=== PATIENT | female | born 1960 | race Caucasian/White ===

== ENCOUNTER 2019-08-27 08:42 | Outpatient (CLI) | payer OTHER, SELFPAY ==
--- NOTE | ~2019-08-27 | MM_ITS ---
EXAMINATION: MM screening kota BI w nicholas HISTORY: Screening mammogram TECHNIQUE: Craniocaudal and mediolateral oblique 3-D tomosynthesis images were obtained and synthetic 2-D images were generated. CAD analysis was submitted and interpreted. COMPARISON: 08/17/2018, 05/16/2017, 11/09/2015 bilateral digital screening mammogram examinations BREAST PARENCHYMAL COMPOSITION: The breasts are almost entirely fatty. FINDINGS: There is no evidence of suspicious mass, calcification, or architectural distortion to sugg est malignancy in either breast. There has been no suspicious interval change. IMPRESSION: 1. No mammographic evidence of malignancy. 2. Recommend routine screening mammography in one year. BI-RADS Category 1: Negative Reviewed, dictated and finalized at location A.
== END 2019-08-27 08:43 | disposition home or self-care (01) ==
PROVIDERS: PCP Internal Medicine; Visit Provider Obstetrics & Gynecology
DX: Z12.31 Encounter for screening mammogram for malignant neoplasm of breast (principal)
CPT/HCPCS: 77063; 77067

== ENCOUNTER 2019-11-16 07:48 | Outpatient (RCR) | payer OTHER, SELFPAY ==
--- NOTE | 2019-11-16 09:35 | OTOPEVAL ---
OCCUPATIONAL THERAPY EVALUATION REPORT Thank you for referring Sloane Adamson to [facility].? 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 She will benefit from orthotic fabrication, use of modalities, manual therapy, HEP instruction, and kinesiotaping to help facilitate pain reduction and optimal functional use of the right UE. Therapy recommended 1-2x/week for 6 weeks with the goal of tapering off therapy in weeks 4-6 while inflammation and pain decrease. Please review, sign, date and return this plan of care AKIL. I agree with and certify that the following plan of care is medically necessary. Referring Physician Date Referring Provider: Triston Osuna MD *OT Outpatient Evaluation Outpatient Past Medical History Past Medical History Source of Past Medical History Patient Neurological History Hx Neurological Disorders No Significant History Cardiovascular History Hx Cardiac Disorders No Significant History Respiratory History Hx Respiratory Disorders No Significant History Gastrointestinal History Hx Gastroesophageal Reflux Disease Yes Hx Polyps Yes Genitourinary History Hx Genitourinary Disorders No Significant History Musculoskeletal History Hx Arthritis Yes: back Hx Fractures Yes: right clavicle Integumentary History Hx Skin Disorders No Significant History Other History Hx Other Surgeries Yes: Right carpal and cubital tunnel surgeries Evaluation Information Problem Diagnosis Right forearm pain Subjective Information Sloane reports having right Query Text:As Reported By Patient/ dorsal wrist and thumb pain Family since about September. In the past 6-8 weeks has had cortisone injections for right trigger thumb, de Quervain's, and intersection syndrome. She reports very minimal relief from the injections and that her pain always returns. She has a wrist cock up brace that she wears intermittently . Pain Assessment Timing of Pain Assessment Timing of Pain Assessment Assessment Pain Scale Pain Scale Used Numeric (1 - 10) Self Report Pain Assessment Right Dorsal Wrist(s) Reported Pain Level 5 Pain Description Aching,Soreness Pain Frequency Continuous Lowest Pain Intensity 2 Greatest Pain Intensity 10 Interventions Used By Clinicians Education,Manual Therapy Techniques,Paraffin,Taping Additional Pain Comments Post tx - pain reduced to 3/10 Pain Score Pain Score 5: Self Report Upper Extremity Range of Motion Elbow/Forearm Range of Motion Bilateral Reason Not Measured
--- NOTE | 2019-12-03 07:32 | PCOTNOTE ---
Patient called and cancelled tx this AM due to hurting her hand.
--- NOTE | 2019-12-14 07:35 | PCOTNOTE ---
Patient called & cancelled scheduled appointment this date due to not feeling well.
--- NOTE | 2019-12-16 11:32 | OTOPEVAL ---
OCCUPATIONAL THERAPY RE-EVALUATION 12/16/19 Thank you for referring Sloane Adamson to [facility] [place].? At this time Sloane has progressed to having no pain and has been immobilizing the wrist and thumb x3 weeks. Sloane's HEP was progressed from PROM to beginning AROM. Over the next three weeks she has home exercise program which will progress to graded strengthening with a schedule to wean off the orthotic at the 6 week hollie. Plan to have the patient complete this HEP over the next 3 weeks on her own and follow-up for a final re-evaluation in 3 weeks. The patient is scheduled to be seen for another therapy follow up and re-eval in 3 weeks. Please review, sign, date and return this plan of care AKIL. I agree with and certify that the following plan of care is medically necessary. Referring Physician Date Admitting Provider: Attending Provider: Triston Osuna MD Referring Provider: *OT Outpatient Evaluation Start: 11/16/19 07:59 Evaluation Information Problem Diagnosis Right forearm pain Additional Evaluation Detail Sloane has participated in the initial therapy evaluation and 6 subsequent treatment sessions for right forearm pain consistent with intersection syndrome. Therapy has consisted of using forearm based thumb spica splint in conjunction with modalities and manual therapy for inflammation reduction. Subjective Information Sloane reports improving to Query Text:As Reported By Patient/ having no pain. She states she Family has been compliant with wearing the splint at all times . She notes being happy with the progress so far. Pain Assessment Timing of Pain Assessment Timing of Pain Assessment Re-assessment Pain Scale Pain Scale Used Numeric (1 - 10) Self Report Pain Assessment Right Dorsal Wrist(s) Reported Pain Level 0 Lowest Pain Intensity 0 Greatest Pain Intensity 0 Pain Level Goal 0 Pain Relief Interventions Used By Splinting Patient Pain Score Pain Score 0: Self Report Additional Pain Score Comments At SOC, patient's pain at rest with consistently 5/10 and would increase to 10/10 at times. She has been wearing a forearm based thumb spica x3 weeks and has had 0/10 pain for a week. Upper Extremity Range of Motion Wrist Range of Motion Bilateral Reason Not Measured WNL/Left,WNL/Right Wrist Range of Motion Comments No pain with AROM of the
--- NOTE | 2020-01-05 08:55 | OTOPEVAL ---
OT RE-EVALUATION AND DISCHARGE NOTE 01/05/2020 Thank you for referring Sloane Adamson to [facility]. Sloane has progressed to no pain with unrestricted use and no pain with strengthening. She is independent with all materials including a splint weaning schedule to stop wearing the splint at night. Goals have been met and patient is in agreement with discharge. Please review, sign, date and return this D/C Note AKIL. I agree with and certify that the following plan of care is medically necessary. 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 Therapy has consisted of using forearm based thumb spica splint in conjunction with modalities and manual therapy for inflammation reduction. Today she presents to the re- evaluation after 3 weeks of no therapy, wrist strengthening with 1-2#, and weaning from the splint. Subjective Information Sloane continues to report no Query Text:As Reported By Patient/ pain at this time. She has not Family been wearing the splint during the day with activity and states that no activities have caused pain. She is able to complete 20 reps of wrist strengthening with 2# free weight without pain. She states she has been wearing the splint to bed about 50% of the time. Pain Assessment Timing of Pain Assessment Timing of Pain Assessment Re-assessment Self Report Self Report Pain Level 0 Pain Score Pain Score 0: Self Report Upper Extremity Range of Motion Elbow/Forearm Range of Motion Bilateral Reason Not Measured WNL/Left,WNL/Right Wrist Range of Motion Bilateral Reason Not Measured WNL/Left,WNL/Right Wrist Range of Motion Comments No pain with AROM of the wrist Finger Range of Motion Bilateral Reason Not Measured WNL/Left,WNL/Right Thumb Range of Motion Bilateral Reason Not Measured WNL/Right Upper Extremity Muscle Strength Testing Wrist
== END 2020-01-05 11:23 | disposition home or self-care (01) ==
LOC: ANHOT 07:48
PROVIDERS: PCP Internal Medicine; Visit Provider Plastic Surgery
DX: M79.631 Pain in right forearm (principal)
CPT/HCPCS: 97018; 97035; 97110; 97140; 97166; L3808

== ENCOUNTER → 2020-08-11 14:35 | Outpatient (CLI) | payer OTHER, SELFPAY ==
--- NOTE | ~2020-08-11 | MR_ITS ---
EXAMINATION: MR lumbar spine wo con DATE: 08/11/2020 15:28 INDICATION: Chronic worsening lumbago TECHNIQUE: Magnetic resonance imaging (MRI) of the lumbar spine was performed without intravenous con trast. Sequences included sagittal T2-weighted FSE, sagittal T2-weighted FS FSE, sagittal T1-weighted FSE, and axial T2-weighted FSE. COMPARISON: 03/29/2019 FINDINGS: 7 degrees lumbar levocurvature. Sagittal alignment is normal. Vertebral body heights are normal. T1 h yperintense L1 hemangioma. Normal marrow signal. Disc heights are normal. The conus medullaris termin ates at T12-L1. There is normal signal in the caudal spinal cord. Paravertebral soft tissues are unre markable. The following disc levels are specifically discussed: T12-L1: Disc is minimally bulging. There is mild bilateral facet joint osteoarthritis. There is no ne ural foraminal stenosis. There is no central canal stenosis. L1-L2: Disc is minimally bulging. There is mild bilateral facet joint osteoarthritis. There is no jessi ral foraminal stenosis. There is no central canal stenosis. L2-L3: Disc is mildly bulging. There is mild bilateral facet joint osteoarthritis. There is mild righ t and minimal left neural foraminal stenosis. There is no central canal stenosis. L3-L4: Disc is mildly bulging. There is mild bilateral facet joint osteoarthritis. There is mild bila teral neural foraminal stenosis. There is no central canal stenosis. L4-L5: Disc is bulging with annular fissure superimposed small central disc extrusion with disc mater ial extending couple millimeters cephalad to the level of the inferior endplate of L4. There is hyper trophy of the ligamentum flavum. There is moderate bilateral facet joint osteoarthritis. There is mil d right and mild to moderate left neural foraminal stenosis. There is mild central canal stenosis. L5-S1: Unchanged central disc protrusion. There is mild right and moderate left facet joint osteoarth ritis. There is mild bilateral neural foraminal stenosis. There is mild central canal stenosis. IMPRESSION: 1. No appreciable interval change in mild lumbar spondylosis. Reviewed, dictated and finalized at location A.
== END ==
PROVIDERS: Visit Provider Nurse Practitioner Family
DX: M54.5 Low back pain (principal)
CPT/HCPCS: 72148

== ENCOUNTER 2020-09-06 08:49 | Outpatient (CLI) | payer OTHER, SELFPAY ==
--- NOTE | ~2020-09-06 | MM_ITS ---
EXAMINATION: MM screening kota BI w nicholas HISTORY: Screening mammogram TECHNIQUE: Craniocaudal and mediolateral oblique 3-D tomosynthesis images were obtained and synthetic 2-D images were generated. CAD analysis was submitted and interpreted. COMPARISON: 08/27/2019, 08/22/2018, 05/16/2017 bilateral digital screening mammogram examinations BREAST PARENCHYMAL COMPOSITION: The breasts are almost entirely fatty. FINDINGS: There is no evidence of suspicious mass, calcification, or architectural distortion to sugg est malignancy in either breast. There has been no suspicious interval change. IMPRESSION: 1. No mammographic evidence of malignancy. 2. Recommend routine screening mammography in one year. BI-RADS Category 1: Negative Reviewed, dictated and finalized at location A.
== END 2020-09-06 08:50 | disposition home or self-care (01) ==
PROVIDERS: PCP Internal Medicine; Visit Provider Obstetrics & Gynecology
DX: Z12.31 Encounter for screening mammogram for malignant neoplasm of breast (principal)
CPT/HCPCS: 77063; 77067

== ENCOUNTER 2020-10-04 09:00 | Outpatient (RCR) | payer OTHER, SELFPAY ==
--- NOTE | 2020-09-04 12:35 | PTOPEVAL ---
INITIAL PHYSICAL THERAPY EVALUATION and PLAN OF CARE Thank you for referring Sloane Adamson to [facility].? Sloane is scheduled to be seen for physical therapy? 2x/week for 4 weeks. Please review, sign, date and return this plan of care AKIL. I agree with and certify that the following plan of care is medically necessary. Referring Physician Date Admitting Provider: Attending Provider: Keira Shah, WINDER HELPER-C Referring Provider: *PT Outpatient Evaluation Start: 09/04/20 11:23 Freq: Status: Active Protocol: Document 09/04/20 11:24 NAJMA (Rec: 09/04/20 12:33 NAJMA [id number]) Therapy Assessment Status Assessment Status Assessment Status Evaluation Outpatient Past Medical History Past Medical History Source of Past Medical History Recalled from Previous Visit, Confirmed with Patient/Family Neurological History Hx Neurological Disorders No Significant History Cardiovascular History Hx Hypertension Yes Respiratory History Hx Respiratory Disorders No Significant History Gastrointestinal History Hx Cholecystectomy Yes Hx Gastroesophageal Reflux Disease Yes Hx Polyps Yes Genitourinary History Hx Genitourinary Disorders No Significant History Musculoskeletal History Hx Arthritis Yes: back Hx Fractures Yes: right clavical Hx Orthopedic Surgery Yes: L bunion Integumentary History Hx Skin Disorders No Significant History Other History Hx Other Surgeries Yes: Right carpal and cubital tunnel surgeries Evaluation Information Problem Diagnosis LBP, spondylosis without radiculopathy, spinal stenosis Onset increased discomfort for a while now Subjective Information R side - starts at SIJ, Query Text:As Reported By Patient/ wrapping around lateral Family buttock into R thigh - when gets out of bed in morning - pinching, grabbing sensation - R leg feels like it is going to give way. Sleeps fine - discomfort in morning - takes 1/2 hour to 45 min to feel better. Stays about the same unless she sits for a long period of time - then when gets up to move - increase discomfort. Likes to sit with L leg crossed over R. Diagnostic Tests X-Rays For This Problem Yes MRI For This Problem Yes Prior Level of Function
--- NOTE | 2020-09-22 10:19 | PCPTNOTE ---
Patient called & cancelled scheduled appointment this date due to increased back soreness.
--- NOTE | 2020-10-04 10:28 | PTOPEVAL ---
PHYSICAL THERAPY DISCHARGE SUMMARY Thank you for referring Sloane Adamson to [facility].? Sloane was seen in PT for a total of 7 visits. Good progress was made towards goals set, but pain can still increase to 8/10, pelvic asymmetry remains but improved R SIJ motion is present, discomfort still present with trunk extension and R side bending with decreased motion in these directions, does well with HEP and improved functional abilities were achieved. She is ready for d/c from PT to [facility]. I agree with Sloane's discharge from PT. Referring Physician Date Admitting Provider: Attending Provider: Keira Shah, SALES PROJECT ENGINEER-C Referring Provider: Therapy Assessment Status Assessment Status Assessment Status Discharge Evaluation Information Problem Diagnosis LBP, spondylosis without radiculopathy, spinal stenosis Subjective Information Sloane states that her back is Query Text:As Reported By Patient/ feeling looser. Back pain is Family better in the morning but still there. Amount of back discomfort varies with activity level. Feeling some discomfort on the L side of her back now. Pain Assessment Timing of Pain Assessment Timing of Pain Assessment Assessment Pain Scale Pain Scale Used Numeric (1 - 10) Self Report Pain Assessment Lower Back Reported Pain Level 3 Radicular Pain Location R lower back, R buttock Lowest Pain Intensity 3 Greatest Pain Intensity 8 Cervical and Lumbar ROM Lumbar ROM Lumbar Flexion (0-90) 55 Query Text:Active in Degrees Lumbar Extension (0-40) 15 Query Text:Active in Degrees Lumbar Lateral Flexion Right (0-40) 15 Query Text:Active in Degrees Lumbar Lateral Flexion Left (0-40) 10 Query Text:Active in Degrees Lumbar Comments discomfort with extension and R side bending Palpation Assessment Palpation Palpation In standing - R iliac crest elevated - anteriorly and posteriorly improved R SIJ mobility with trunk AROM P-A mob glides - tenderness at - sacrum - bilat bases - R>L, L5,4 less with L3, none with L2 buttocks - tenderness present bilat - greater on R side increase with pelvic symmetry in prone position lateral mobility - fairly symmetrical L5/S1 Rehab Teaching R
== END 2020-10-10 10:25 | disposition home or self-care (01) ==
LOC: ANHHIPT 09:00
PROVIDERS: Visit Provider Nurse Practitioner Family
DX: M54.5 Low back pain (principal); M47.816 Spondylosis without myelopathy or radiculopathy, lumbar region; M48.061 Spinal stenosis, lumbar region without neurogenic claudication
CPT/HCPCS: 97110; 97140; 97162

== ENCOUNTER 2020-12-19 08:27 | Outpatient (CLI) | payer OTHER, SELFPAY ==
--- NOTE | 2020-12-19 12:00 | NEURO_ITS ---
Impression: # Complains of nocturnal paresthesia of left hand. # Left moderate Carpal Tunnel Syndrome. 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 # Needle/EMG exam not requested. Nerve Conduction Studies Anti Sensory Summary Table Stim Site NR Peak (ms) P-T Amp (?V) Site1 Site2 Delta-P (ms) Dist (cm) Tima (m/s) Left Median Anti Sensory (2-3nd Digit) Wrist 4.1 25.2 Wrist 2-3nd Digit 4.1 14.0 34 Wrist 4.7 40.4 Wrist 2-3nd Digit 4.1 14.0 34 Left Radial Anti Sensory (Base 1st Digit) Wrist 1.8 31.9 Wrist Base 1st Digit 1.8 0.0 Left Ulnar Anti Sensory (5th Digit) Wrist 2.9 51.1 Wrist 5th Digit 2.9 14.0 48 Motor Summary Table Stim Site NR Onset (ms) O-P Amp (mV) Site1 Site2 Delta-0 (ms) Dist (cm) Tima (m/s) Left Median Motor (Abd Poll Brev) Wrist 5.5 4.3 Elbow Wrist 4.9 28.0 57 Elbow 10.4 2.8 Left Ulnar Motor (Abd Dig Minimi) Wrist 2.9 4.3 A Elbow Wrist 5.9 28.0 47 A Elbow 8.8 3.4 B Elbow Wrist 3.8 22.0 58 B Elbow 6.7 3.5 F Wave Studies NR F-Lat (ms) L-R F-Lat (ms) Left Median (Mrkrs) (Abd Poll Brev) 30.99 Left Ulnar (Mrkrs) (Abd Dig Min) 29.77 MTDD
== END 2020-12-19 08:28 | disposition home or self-care (01) ==
PROVIDERS: PCP Internal Medicine; Visit Provider Internal Medicine
DX: M25.532 Pain in left wrist (principal); G56.02 Carpal tunnel syndrome, left upper limb; G56.22 Lesion of ulnar nerve, left upper limb
CPT/HCPCS: 95909

== ENCOUNTER 2021-03-27 08:26 | Outpatient (CLI) | payer OTHER, SELFPAY ==
--- NOTE | 2021-03-27 08:30 | ECG_ITS ---
Measurements Intervals [place] Rate: 69 P: 12 [place]: 167 QRS: 3 QRSD: 92 T: 27 QT: 373 QTc: 400 Interpretive Statements SINUS RHYTHM INCOMPLETE RIGHT BUNDLE BRANCH BLOCK NONSPECIFIC T-WAVE ABNORMALITY- ANT/INF LEADS BASELINE ARTIFACT- I, II, III, AVR, AVL BORDERLINE ECG Electronically Signed On 03-27-2021 8:49:26 WAISTBAND SETTER by Sukhwinder Fuchs D.O.
[2021-03-27 09:12] LABS: Anion Gap 7 mmol/L (8-16); Blood Urea Nitrogen 6 mg/dL (7-17); Calcium 9.3 mg/dL (8.4-10.2); Carbon Dioxide 30 mmol/L (22-30); Chloride 102 mmol/L (98-107); Estimated Glomerular Filt Rate > 60; Glucose 115 mg/dL (65-110); Potassium 3.1 mmol/L (3.4-5.0); Sodium 139 mmol/L (137-145)
== END 2021-03-27 08:27 | disposition home or self-care (01) ==
LOC: ANHSURGERY 08:29
PROVIDERS: Anesthesiology; PCP Internal Medicine; Visit Provider Orthopaedic Surgery
DX: Z01.818 Encounter for other preprocedural examination (principal); Z51.81 Encounter for therapeutic drug level monitoring; Z79.899 Other long term (current) drug therapy; I10 Essential (primary) hypertension; I45.10 Unspecified right bundle-branch block
CPT/HCPCS: 36415; 80048; 93005

== ENCOUNTER 2021-03-29 01:08 | Day surgery (SDC) | payer OTHER, SELFPAY ==
[2021-03-26 09:33] VITALS: BMI 27.3
--- NOTE | 2021-03-26 09:45 | PC.NURSE ---
Report to the Outpatient Waiting Room, entrance under the green pavilion located off [facility], at time 6:00 on date 03/29/21. OR Time: 7:30. - You will be asked a series of questions to screen for COVID 19 for your protection. - A mask is required within the hospital. - Novisitors are allowed at this time. Preoperative COVID Testing Requirements: No COVID Test needed if: (proof is required; if not received patient will have Rapid Test prior to entry) - Patient has received COVID Vaccine at least 14 days prior to procedure date or - Patient has positive COVID test result within last 90 days of surgery date. COVID Test needed if above criteria is not met Patients may have clear liquids (water, carbonated beverages, clear teas, apple juice) until 3 hours prior to surgery (4:30) with a maximum of 20 ounces. - No food from midnight until time of surgery Take the following medications with a SIP of water the morning of surgery: ALPRAZOLAM, BUSPIRONE, GABAPENTIN, PAIN PILL (IF NEEDED), PROPANOLOL, VANLAFAXINE, VILAZODONE Medications to discontinue per physician: N/A Date to take last dose: N/A Please no make-up, nail ethiopian, hairspray, perfume, deodorant, or body powder the day of surgery. No jewelry (including any body piercings) or valuables the day of surgery, leave them at home. Please take a shower or bath the night before, or the morning of, surgery with an antibacterial soap. Wear comfortable, loose fitting clothing. - Jewelry must be removed prior to entering the operating room. Rings and piercings that are not removed may be cut off. - The hospital will not accept responsibility for valuables. - Please leave all valuables, including medications, at home the day of surgery. If you are going home after surgery, a licensed production truck driver must drive you home. - NO public transportation without another adult. - We recommend that an adult stay with you for 24 hours following discharge. - We also recommend that you do not drive, make important decision, drink alcoholic beverages, or take any drugs that were not prescribed by your health care provider for at least 24 hours after your discharge time. Follow any additional instructions given to you from your surgeon. Telephone instructions given to COLLEEN ALLEN and asked if any additional questions and then verbalized understanding. Patient advised to call surgeon office or pre surgery nurse liaison [phone] if any additional questions.
--- NOTE | 2021-03-28 08:37 | WPDANESEPPF ---
Anes - Initial Pre Proc Eval Procedure: Operation Date: 03/29/21 07:30 Proposed Procedures p Left Carpal Tunnel Release, - Phill Narvaez MD s Left Cubital Tunnel Release - Phill Narvaez MD Date/Time: 03/28/21 08:37 Surgeon: Phill Narvaez MD Pre Op Diagnosis: left carpal and cubital tunnel syndrome Patient Data Age: 60 Gender: F Height: 1.7 m Weight: 79.38 kg Allergies Allergy/AdvReac Type Severity Reaction Status Date / Time No Known Allergies Allergy Verified 03/29/21 06:42 Home Medications Medication Instructions Recorded Confirmed Type hydrochlorothiazide 25 mg tablet 25 mg PO DAILY 04/16/19 03/26/21 History losartan 100 mg tablet 100 mg PO DAILY 04/16/19 03/26/21 History omeprazole 40 mg capsule,delayed 40 mg PO DAILY 04/16/19 03/26/21 History release pramipexole 0.5 mg tablet 0.5 mg PO HS 04/16/19 03/26/21 History propranolol 80 mg capsule,extended 80 mg PO DAILY 04/16/19 03/26/21 History release 24 hr trazodone 100 mg tablet 100 mg PO HS 04/16/19 03/26/21 History vilazodone 40 mg tablet 40 mg PO DAILY 04/16/19 03/26/21 History alprazolam 0.25 mg PO BID PRN 02/22/21 03/26/21 History gabapentin 1,200 mg PO TID 02/22/21 03/26/21 History methocarbamol 750 mg PO BID PRN 02/22/21 03/26/21 History venlafaxine 150 mg PO DAILY 02/22/21 03/26/21 History buspirone 5 mg PO BID 03/26/21 03/26/21 History hydrocodone-acetaminophen 1 tablet PO Q6H PRN 03/26/21 03/26/21 History Patient hx anesthesia problems: none Family hx anesthesia problems: none Results Review: All pre-operative results and documents have been reviewed as part of the pre-operative evaluation. [facility] Past Medical History Medical History Anxiety Cubital tunnel syndrome on left Depression GERD (gastroesophageal reflux disease) Hallux rigidus of left foot Hallux valgus of right foot Hypertension Insomnia Left carpal tunnel syndrome Tendinitis of right peroneus brevis tendon Surgical History Surgical History History of bunionectomy History of carpal tunnel release and cubital History of cholecystectomy History of hysterectomy Family History Family History Other Family history of arthritis Family history of heart disease in male family member before age 55 Hypertension Social History Social History Smoking packs per day: 0.5 Smoking cigarettes per day: 10.0 Years smoked: 40 Smoking pack-years: 20.00 Smoking status: Current every day smoker Tobacco type: cigarettes Additional smoking assessment comments: PT CURRENTLY STOPPING SMOKING Alcohol intake: current Alcohol use details: SOCIAL Substance use: unknown Substance use type: does not use Living arrangements: with family Gender identity (if verbalized by the patient): Female Spiritual care concerns: No Anes - Eval Final PreProcedure Day of Procedure 03/28/21 08:37 Patient weight: overweight Heart: regular rate and rhythm Lungs: clear to auscultation and normal air movement Airway: Mallampati scale class II Neurological: alert and oriented Last oral intake: >/= 8 hours ASA classification: III Emergent: no Anesthetic plan: proceed Anesthesia type and monitoring: general LMA and standard monitoring Results Review: All pre-operative results and documents have been reviewed as part of the pre-operative evaluation. Informed Consent: The patient's anesthetic plan and its attendant risks and benefits were discussed with the patient/family/POA. Questions were solicited and answers provided to the satisfaction of the patient/family/POA.
--- NOTE | 2021-03-28 08:50 | PM.IMHP ---
H&P: HPI History of Present Illness Date/Time: 03/28/21 08:50 Chief Complaint: Left wrist and elbow pain, numbness and tingling Narrative: 60-year-old woman with complaints of left elbow and wrist pain, numbness and tingling in the hand and ulnar sided fingers. Unrelieved with bracing, anti-inflammatories and activity modifications. Nerve testing shows elbow and wrist nerve compression. Review of Systems Constitutional: Constitutional: Denies fever(s) Eyes: Eyes: Denies blurry vision ENT: Reports Normal hearing present Cardiovascular: Cardiovascular: Denies chest pain and Denies dyspnea Respiratory: Respiratory: Denies dyspnea and Denies wheezing Gastrointestinal: Gastrointestinal: Denies abdominal pain Genitourinary: Genitourinary: Denies urinary urgency Musculoskeletal: Musculoskeletal: Reports as per HPI and Denies numbness Integumentary/Breasts: Skin/Breast: Denies changing lesions and Denies sores Neurologic: Reports Normal hearing present, Denies behavioral changes, Denies confusion, Denies numbness and Denies convulsions Psychiatric: Psychiatric: Denies behavioral changes, Denies confusion and Denies hallucinations Endocrine: Endocrine: Denies heat intolerance Hematologic/Lymphatic: Hematologic/Lymphatic: Denies easy bleeding Allergic/Immunologic: Allergic/Immunologic: Denies wheezing PMFSH Past Medical History Medical History Anxiety Cubital tunnel syndrome on left Depression GERD (gastroesophageal reflux disease) Hallux rigidus of left foot Hallux valgus of right foot Hypertension Insomnia Left carpal tunnel syndrome Tendinitis of right peroneus brevis tendon Surgical History Surgical History History of bunionectomy History of carpal tunnel release and cubital History of cholecystectomy History of hysterectomy Family History Family History Other Family history of arthritis Family history of heart disease in male family member before age 55 Hypertension Social History Social History Smoking packs per day: 0.5 Smoking cigarettes per day: 10.0 Years smoked: 40 Smoking pack-years: 20.00 Smoking status: Current some day smoker Tobacco type: cigarettes Additional smoking assessment comments: PT CURRENTLY STOPPING SMOKING Alcohol intake: current Alcohol use details: SOCIAL Substance use: never Substance use type: does not use Gender identity (if verbalized by the patient): Female Spiritual care concerns: No Meds Home Medications and Allergies Home Medications Medication Instructions Recorded Confirmed Type hydrochlorothiazide 25 mg tablet 25 mg PO DAILY 04/16/19 03/26/21 History losartan 100 mg tablet 100 mg PO DAILY 04/16/19 03/26/21 History omeprazole 40 mg capsule,delayed 40 mg PO DAILY 04/16/19 03/26/21 History release pramipexole 0.5 mg tablet 0.5 mg PO HS 04/16/19 03/26/21 History propranolol 80 mg capsule,extended 80 mg PO DAILY 04/16/19 03/26/21 History release 24 hr trazodone 100 mg tablet 100 mg PO HS 04/16/19 03/26/21 History vilazodone 40 mg tablet 40 mg PO DAILY 04/16/19 03/26/21 History alprazolam 0.25 mg PO BID PRN 02/22/21 03/26/21 History gabapentin 1,200 mg PO TID 02/22/21 03/26/21 History methocarbamol 750 mg PO BID PRN 02/22/21 03/26/21 History venlafaxine 150 mg PO DAILY 02/22/21 03/26/21 History buspirone 5 mg PO BID 03/26/21 03/26/21 History hydrocodone-acetaminophen 1 tablet PO Q6H PRN 03/26/21 03/26/21 History Allergies Allergy/AdvReac Type Severity Reaction Status Date / Time No Known Allergies Allergy Verified 03/26/21 09:28 Exam Const: General: healthy appearing; No in distress or confusion Orientation/consciousness: oriented to person, oriented to place, oriented to time and No c
[2021-03-29] VITALS (9 sets, daily range): BP systolic 106–147; BP diastolic 68–84; PULSE 67–80; RESP 12–20; TEMP 36.2–36.3; O2SAT 93–100
[2021-03-29] MEDS: ACETAMINOPHEN 500 MG TABLET 1000 MG PO (06:50)
[2021-03-29] MEDS: LACTATED RINGERS 1,000 ML 30 ML IV CONT ×2 (06:55→08:18)
[2021-03-29] MEDS: KETOROLAC 15 MG/ML VIAL (*BKC) IV PUSH (06:59)
--- NOTE | 2021-03-29 07:06 | WPDHPUPDATE1 ---
History and Physical Update Update Date/Time: 03/29/21 07:06 History and Physical has been reviewed, including an updated exam of the patient. There are NO changes in the patient's condition. Risks, benefits, and alternatives have been discussed and questions answered. Patient agrees to proceed with procedure.
[2021-03-29] MEDS: ceFAZolin 2 GM/D5W 50 ML 2 GM/50 ML BAG IVPB (07:19)
[2021-03-29] MEDS: BUPIVACAINE/EPINEPHRINE 0.5% 10 ML VIAL 20 ML INFILTRATE (07:45)
[2021-03-29] MEDS: fentaNYL CITRATE INJ (*CRX) 100 MCG/2 ML VIAL 25 MCG IV PUSH ×4 (08:46→09:02)
--- NOTE | 2021-03-29 08:47 | P.OP_ITS ---
Procedure Note - Detailed Date of Procedure 03/29/21 Pre-op Diagnosis left carpal and cubital tunnel syndrome Post-op Diagnosis same Procedure Performed Left cubital tunnel release, left carpal tunnel release Surgeon Phill Narvaez MD [employer] [facility] assistant director Anesthesia general Indications 60-year-old woman with electrodiagnostic evidence of left cubital tunnel and carpal tunnel nerve compression. Patient has failed conservative treatment with bracing, physical therapy and activity modification. Presents now for operative treatment. Description of Procedure After informed consent was given, the operative extremity was marked in the preoperative holding area. Intravenous antibiotics were given. The patient was taken to the operating room and underwent general anesthesia by the anesthesia team. A time-out was performed confirming patient, procedure, and operative site. Local infiltrate at the carpal tunnel and cubital tunnel was done with 0.5% marcaine. Prepping and draping was done using chloraprep skin solution with usual surgical sterile technique. Anatomic landmarks marked on skin. Hand and arm were exsanguinated and arm tourniquet inflated to 225mmHg. Cubital tunnel was mapped out and incision made with a 15 blade knife. Hemostasis controlled electrocautery. Dissection then carried down to the retinaculum which was divided in line with the skin incision starting proximally and proceeding distally. The ulnar nerve was identified and protected during the release. There was tight and scarred fascia from the medial epicondyle and just distal to this. Branches of the ulnar nerve were protected. Good release was visualized proximally and distally. Elbow was then taken through range of motion and the nerve was noted to be stable in the groove. Wound thoroughly irrigated and subcutaneous tissue repaired with 3-0 Monocryl interrupted suture. Skin repaired with 4-0 nylon running suture. attention then turned to the carpal tunnel. Incision was made with #15 blade knife in skin crease on volar palm. Hemostasis was achieved with electrocautery. Careful dissection was carried down to the transverse carpal ligament. Retractors were placed. Ligament overlying median nerve was incised in line with skin incision using lower elwha blade. Proximal and distal release was done with metzenbaum scissors under direct visualization. Mosquito clamp was placed deep to ligament to protect nerve during release. The nerve was inspected and noted to be intact with mild flattening. Tendons had good excursion. The tourniquet was then released and pressure held. Bleeding points were coagulated with bipolar cautery. The wound was thoroughly irrigated with antibiotic solution. The skin was closed with 4-0 nylon interrupted suture. A sterile dressing was applied. Good capillary refill in the fingers and thumb was noted. The patient was transported to the recovery room in stable condition. All sponge, needle, instrument counts were correct at the end of the case. Implants None Estimated Blood Loss 10 Tourniquet Time 19 Drains No Packing No Pathology none sent Complications None Condition stable Disposition PACU
[2021-03-29] MEDS: oxyCODONE HCL (*CRX) 5 MG TAB IR PO (10:14)
== END 2021-03-29 10:58 | disposition home or self-care (01) ==
PROVIDERS: PCP Internal Medicine; Visit Provider Orthopaedic Surgery
PROC: (CPT 64721; principal; 2021-03-29 07:30)
PROC: (CPT 64721; 2021-03-29 07:30)
DX: G56.02 Carpal tunnel syndrome, left upper limb (principal); G56.22 Lesion of ulnar nerve, left upper limb; I10 Essential (primary) hypertension; K21.9 Gastro-esophageal reflux disease without esophagitis; F41.8 Other specified anxiety disorders; F17.210 Nicotine dependence, cigarettes, uncomplicated
CPT/HCPCS: 64721; 64718; A4565; A9270; J0690; J1100; J1885; J2405; J2704; J3010; J7120

== ENCOUNTER 2021-04-11 01:05 | Day surgery (SDC) | payer OTHER, SELFPAY ==
[2021-02-22 13:56] VITALS: BMI 27.6
--- NOTE | 2021-03-06 13:26 | PM.HPGS ---
History of Present Illness History of Present Illness Consent: Risks, benefits, and alternatives have been discussed and questions answered. Patient agrees to proceed with procedure. Chief complaint: hx of colon polyps, neoplasm screening Narrative: Sloane Adamson is a 60 year old female was referred for colon cancer screening. She had multiple polyps removed in 2018. One was relatively large the site tattooed. She was re-examined a year or so later had a few more polyps removed at that time Review of Systems Review of Systems: All systems reviewed & are unremarkable except as noted in HPI and below PMFSH Past Medical History Medical History Anxiety Cubital tunnel syndrome on left Depression Hallux rigidus of left foot Hallux valgus of right foot Insomnia Left carpal tunnel syndrome Tendinitis of right peroneus brevis tendon Surgical History Surgical History History of bunionectomy History of carpal tunnel release and cubital History of cholecystectomy Family History Family History Other Family history of arthritis Family history of heart disease in male family member before age 55 Hypertension Social History Social History Smoking packs per day: 0.5 Smoking cigarettes per day: 10.0 Years smoked: 40 Smoking pack-years: 20.00 Smoking status: Current every day smoker Tobacco type: cigarettes Alcohol intake: current Substance use: unknown Gender identity (if verbalized by the patient): Female Spiritual care concerns: No Meds Home Medications and Allergies Home Medications Medication Instructions Recorded Confirmed Type hydrochlorothiazide 25 mg tablet 25 mg PO DAILY 04/16/19 02/22/21 History losartan 100 mg tablet 100 mg PO DAILY 04/16/19 02/22/21 History omeprazole 40 mg capsule,delayed 40 mg PO DAILY 04/16/19 02/22/21 History release pramipexole 0.5 mg tablet 0.5 mg PO HS 04/16/19 02/22/21 History propranolol 80 mg capsule,extended 80 mg PO DAILY 04/16/19 02/22/21 History release 24 hr trazodone 100 mg tablet 100 mg PO HS 04/16/19 02/22/21 History vilazodone 40 mg tablet 40 mg PO DAILY 04/16/19 02/22/21 History alprazolam 0.25 mg PO BID PRN 02/22/21 02/22/21 History gabapentin 1,200 mg PO TID 02/22/21 02/22/21 History methocarbamol 750 mg PO BID PRN 02/22/21 02/22/21 History venlafaxine 150 mg PO DAILY 02/22/21 02/22/21 History Allergies Allergy/AdvReac Type Severity Reaction Status Date / Time No Known Allergies Allergy Verified 02/22/21 15:18 Exam Resp: Auscultation: clear to auscultation bilaterally Cardio: Rate: regular rate Rhythm: regular rhythm GI: GI Palp: Yes Soft to palpation and No Tenderness to palpation present (GI) Assessment and Plan Assessment and plan (1) Colon cancer screening: Code(s): Z12.11 - Encounter for screening for malignant neoplasm of colon Status: Acute Assessment and Plan: Colonoscopy with possible biopsy or polypectomy or cautery or injection of substances.
[2021-04-03 09:43] VITALS: BMI 26.7
--- NOTE | 2021-04-03 09:44 | PC.NURSE ---
No changes in patient health history since here one week ago for left arm and hand surgery, medications updated, instructions given for upcoming procedure 04/11/21
--- NOTE | 2021-04-10 12:57 | PM.HPGS ---
History of Present Illness History of Present Illness Consent: Risks, benefits, and alternatives have been discussed and questions answered. Patient agrees to proceed with procedure. Chief complaint: hx of colon polyps, neoplasm screening Narrative: Sloane Adamson is a 60 year old female was referred for colon cancer screening. Four years ago she had removal of [address] Delgado. The polyps were all tubular adenomas. She had several polyps prior to that examination also. Review of Systems Review of Systems: All systems reviewed & are unremarkable except as noted in HPI and below PMFSH Past Medical History Medical History Anxiety Cubital tunnel syndrome on left Depression Encounter for postoperative care GERD (gastroesophageal reflux disease) Hallux rigidus of left foot Hallux valgus of right foot Hypertension Insomnia Left carpal tunnel syndrome Tendinitis of right peroneus brevis tendon Surgical History Surgical History History of bunionectomy History of carpal tunnel release and cubital History of cholecystectomy History of hysterectomy Family History Family History Other Family history of arthritis Family history of heart disease in male family member before age 55 Hypertension Social History Social History Smoking packs per day: 0.5 Smoking cigarettes per day: 10.0 Years smoked: 40 Smoking pack-years: 20.00 Tobacco type: cigarettes Additional smoking assessment comments: Currently quitting smoking Alcohol intake: current Alcohol use details: social Substance use: unknown Substance use type: does not use Living arrangements: with family Gender identity (if verbalized by the patient): Female Spiritual care concerns: No Meds Home Medications and Allergies Home Medications Medication Instructions Recorded Confirmed Type hydrochlorothiazide 25 mg tablet 25 mg PO DAILY 04/16/19 04/03/21 History losartan 100 mg tablet 100 mg PO DAILY 04/16/19 04/03/21 History omeprazole 40 mg capsule,delayed 40 mg PO DAILY 04/16/19 04/03/21 History release pramipexole 0.5 mg tablet 0.5 mg PO HS 04/16/19 04/03/21 History propranolol 80 mg capsule,extended 80 mg PO DAILY 04/16/19 04/03/21 History release 24 hr trazodone 100 mg tablet 100 mg PO HS 04/16/19 04/03/21 History vilazodone 40 mg tablet 40 mg PO DAILY 04/16/19 04/03/21 History alprazolam 0.25 mg PO BID PRN 02/22/21 04/03/21 History gabapentin 1,200 mg PO TID 02/22/21 04/03/21 History methocarbamol 750 mg PO BID PRN 02/22/21 04/03/21 History venlafaxine 150 mg PO DAILY 02/22/21 04/03/21 History buspirone 5 mg PO BID 03/26/21 04/03/21 History ondansetron 8 mg PO Q8H PRN #10 tablet 03/29/21 04/03/21 Rx sennosides-docusate sodium [Senna 1 tab-cap PO HS #14 tablet 03/29/21 04/03/21 Rx with Docusate Sodium] hydrocodone 5 mg-acetaminophen 325 1 tablet PO Q6H PRN #30 tablet 04/03/21 04/11/21 Rx mg tablet Allergies Allergy/AdvReac Type Severity Reaction Status Date / Time No Known Allergies Allergy Verified 04/11/21 08:41 Exam Resp: Auscultation: clear to auscultation bilaterally Cardio: Rate: regular rate Rhythm: regular rhythm GI: GI Palp: Yes Soft to palpation and No Tenderness to palpation present (GI) Assessment and Plan Assessment and plan (1) Colon cancer screening: Code(s): Z12.11 - Encounter for screening for malignant neoplasm of colon Status: Acute Assessment and Plan: Colonoscopy with possible biopsy or polypectomy or cautery or injection of substances.
--- NOTE | 2021-04-11 08:16 | WPDANESEPPF ---
Anes - Initial Pre Proc Eval Procedure: Operation Date: 04/11/21 09:30 Proposed Procedures p Screening Colonoscopy - Abdulaziz Agosto MD Date/Time: 04/11/21 08:16 Surgeon: Abdulaziz Agosto MD Pre Op Diagnosis: hx of colon polyps, neoplasm screening Patient Data Age: 60 Gender: F Height: 1.7 m Weight: 77.4 kg Allergies Allergy/AdvReac Type Severity Reaction Status Date / Time No Known Allergies Allergy Verified 04/11/21 08:41 Home Medications Medication Instructions Recorded Confirmed Type hydrochlorothiazide 25 mg tablet 25 mg PO DAILY 04/16/19 04/03/21 History losartan 100 mg tablet 100 mg PO DAILY 04/16/19 04/03/21 History omeprazole 40 mg capsule,delayed 40 mg PO DAILY 04/16/19 04/03/21 History release pramipexole 0.5 mg tablet 0.5 mg PO HS 04/16/19 04/03/21 History propranolol 80 mg capsule,extended 80 mg PO DAILY 04/16/19 04/03/21 History release 24 hr trazodone 100 mg tablet 100 mg PO HS 04/16/19 04/03/21 History vilazodone 40 mg tablet 40 mg PO DAILY 04/16/19 04/03/21 History alprazolam 0.25 mg PO BID PRN 02/22/21 04/03/21 History gabapentin 1,200 mg PO TID 02/22/21 04/03/21 History methocarbamol 750 mg PO BID PRN 02/22/21 04/03/21 History venlafaxine 150 mg PO DAILY 02/22/21 04/03/21 History buspirone 5 mg PO BID 03/26/21 04/03/21 History ondansetron 8 mg PO Q8H PRN #10 tablet 03/29/21 04/03/21 Rx sennosides-docusate sodium [Senna 1 tab-cap PO HS #14 tablet 03/29/21 04/03/21 Rx with Docusate Sodium] hydrocodone 5 mg-acetaminophen 325 1 tablet PO Q6H PRN #30 tablet 04/03/21 04/11/21 Rx mg tablet Patient hx anesthesia problems: none Family hx anesthesia problems: none Results Review: All pre-operative results and documents have been reviewed as part of the pre-operative evaluation. [facility] Past Medical History Medical History (Updated 04/03/21 @ 12:02 by Phill Narvaez MD) Anxiety Cubital tunnel syndrome on left Depression Encounter for postoperative care GERD (gastroesophageal reflux disease) Hallux rigidus of left foot Hallux valgus of right foot Hypertension Insomnia Left carpal tunnel syndrome Tendinitis of right peroneus brevis tendon Surgical History Surgical History History of bunionectomy History of carpal tunnel release and cubital History of cholecystectomy History of hysterectomy Family History Family History Other Family history of arthritis Family history of heart disease in male family member before age 55 Hypertension Social History Social History Smoking packs per day: 0.5 Smoking cigarettes per day: 10.0 Years smoked: 40 Smoking pack-years: 20.00 Tobacco type: cigarettes Additional smoking assessment comments: Currently quitting smoking Alcohol intake: current Alcohol use details: social Substance use: unknown Substance use type: does not use Living arrangements: with family Gender identity (if verbalized by the patient): Female Spiritual care concerns: No Anes - Eval Final PreProcedure Day of Procedure 04/11/21 08:16 Patient weight: overweight Heart: regular rate and rhythm Lungs: clear to auscultation and normal air movement Airway: Mallampati scale class II Neurological: alert and oriented Last oral intake: >/= 8 hours ASA classification: II Emergent: no Anesthetic plan: proceed Anesthesia type and monitoring: general GIVS Results Review: All pre-operative results and documents have been reviewed as part of the pre-operative evaluation. Informed Consent: The patient's anesthetic plan and its attendant risks and benefits were discussed with the patient/family/POA. Questions were solicited and answers provided to the satisfaction of the patient/family/POA.
[2021-04-11 08:44] VITALS: BP 127/93; PULSE 103; RESP 18; TEMP 36.7; O2SAT 98
[2021-04-11] MEDS: LACTATED RINGERS 1,000 ML 150 ML IV CONT (08:53)
[2021-04-11 10:10] VITALS: BP 92/59; PULSE 79; RESP 18; O2SAT 95
[2021-04-11 10:20] VITALS: BP 121/74; PULSE 80; RESP 16; O2SAT 99
[2021-04-11 10:30] VITALS: BP 121/81; PULSE 85; RESP 23; O2SAT 99
== END 2021-04-11 10:38 | disposition home or self-care (01) ==
PROVIDERS: PCP Internal Medicine; Visit Provider Internal Medicine Gastroenterology
PROC: 0DJD8ZZ Inspection of Lower Intestinal Tract, Via Natural or Artificial Opening Endoscopic (ICD-10-PCS; CPT 45378; principal; 2021-04-11 09:30)
DX: Z12.11 Encounter for screening for malignant neoplasm of colon (principal); K57.30 Diverticulosis of large intestine without perforation or abscess without bleeding; D12.3 Benign neoplasm of transverse colon; D17.5 Benign lipomatous neoplasm of intra-abdominal organs; I10 Essential (primary) hypertension; K21.9 Gastro-esophageal reflux disease without esophagitis; F41.8 Other specified anxiety disorders; F17.210 Nicotine dependence, cigarettes, uncomplicated
CPT/HCPCS: 45385; 45380; 88305; J2704; J7120

== ENCOUNTER 2021-12-05 09:35 | Outpatient (CLI) | payer OTHER, SELFPAY ==
--- NOTE | ~2021-12-05 | MM_ITS ---
EXAMINATION: MM screening [facility] BI w nicholas HISTORY: Screening mammogram TECHNIQUE: Craniocaudal and mediolateral oblique 3-D tomosynthesis images were obtained and synthetic 2-D images were generated. CAD analysis was submitted and interpreted. COMPARISON: 09/06/2020, 08/27/2019, 08/17/2018 BREAST PARENCHYMAL COMPOSITION: The breasts are almost entirely fatty. FINDINGS: There is no suspicious mass, calcification, or architectural distortion to suggest malignan cy in either breast. There has been no suspicious interval change. IMPRESSION: 1. No mammographic evidence of malignancy. 2. Recommend routine screening mammography in one year. BI-RADS Category 1: Negative Reviewed, dictated and finalized at location D.
== END 2021-12-05 09:36 | disposition home or self-care (01) ==
PROVIDERS: PCP Internal Medicine; Visit Provider Obstetrics & Gynecology
DX: Z12.31 Encounter for screening mammogram for malignant neoplasm of breast (principal)
CPT/HCPCS: 77063; 77067

== ENCOUNTER → 2022-09-24 09:43 | Outpatient (CLI) | payer OTHER, SELFPAY ==
--- NOTE | ~2022-09-24 | CT_ITS ---
EXAMINATION: CT lung screening DATE: 09/24/2022 09:56 INDICATION: current smoker TECHNIQUE: Computed tomography (CT) of the chest was performed without intravenous contrast. Addition al 3D reconstructions utilizing coronal maximum intensity projection (MIP) were performed. Automated exposure control and iterative reconstruction technique were employed. The dose-length product was 10 6.55 mGy-cm. COMPARISON: None FINDINGS: Mild emphysema. There are scattered tree-in-bud opacities with numerous <4 mm pulmonary nodules in chuck th lungs with upper lung predominance which can be seen with respiratory bronchiolitis interstitial l nay disease. No pulmonary edema or pleural effusion. Heart size is normal. No pericardial effusion. T horacic aorta is normal in caliber. No pathologically enlarged thoracic lymphadenopathy. Small slidin g-type hiatal hernia. Cholecystectomy clips the gallbladder fossa. Mild S-shaped curvature of the tho racic spine. T10 hemangioma. IMPRESSION: 1. Lung-RADS category 2: Benign appearance or behavior. Continue annual screening with noncontrast lo w-dose chest CT in 12 months. 2. Small sliding-type hiatal hernia. Reviewed, dictated and finalized at location A. IMPRESSION: 1. Lung-RADS category 2: Benign appearance or behavior. Continue annual screeni ng with noncontrast low-dose chest CT in 12 months. 2. Small sliding-type hiatal hernia.
== END ==
PROVIDERS: PCP Nurse Practitioner Family; Visit Provider Nurse Practitioner Family
DX: Z12.2 Encounter for screening for malignant neoplasm of respiratory organs (principal); F17.210 Nicotine dependence, cigarettes, uncomplicated; K44.9 Diaphragmatic hernia without obstruction or gangrene
CPT/HCPCS: 71271

== ENCOUNTER 2022-11-16 11:42 | Emergency (ER) | payer OTHER, SELFPAY ==
[2022-11-16 11:50] VITALS: BP 126/97; PULSE 77; RESP 16; TEMP 36.4; O2SAT 100
--- NOTE | 2022-11-16 11:57 | ED.EYEPROB ---
HPI - Eye Problem General Chief complaint: Eye Problems Stated complaint: FB R EYE Time Seen by Provider: 11/16/22 12:00 Source: patient and RN notes reviewed Mode of arrival: ambulatory Limitations: no limitations History of Present Illness HPI Narrative: 61-year-old female presents with concern for pain, feeling of foreign body to her right eye. She reports symptoms started yesterday, she tried to flush the eye. She denies any known trauma. She denies purulent drainage. She denies vision changes MD chief complaint: eye pain Related Data Home Medications Medication Instructions Recorded Confirmed trazodone 100 mg tablet 100 mg PO HS 04/16/19 09/26/21 vilazodone 40 mg tablet (Viibryd) 40 mg PO DAILY 04/16/19 09/26/21 gabapentin 600 mg tablet 1,200 mg PO TID 02/22/21 09/26/21 methocarbamol 750 mg tablet 750 mg PO BID PRN Pain 02/22/21 09/26/21 buspirone 10 mg tablet 10 mg PO TID 04/30/22 Allergies Allergy/AdvReac Type Severity Reaction Status Date / Time No Known Allergies Allergy Verified 11/16/22 12:05 Review of Systems Review of Systems: CONSTITUTIONAL: Denies malaise, chills, sweats, or fever. EYES: Denies visual changes. Reports right eye pain ENT: Denies rhinorrhea, congestion, sinus pain, otalgia or sore throat. SKIN: Denies rash or itching. NEUROLOGIC: Denies numbness, weakness, or headache. PSYCHIATRIC: Denies anxiety or depression. All systems reviewed & are unremarkable except as noted in HPI and below PMFSH Past Medical History Medical History ) Anxiety Cubital tunnel syndrome on left Depression Encounter for postoperative care GERD (gastroesophageal reflux disease) Hallux rigidus of left foot Hallux valgus of right foot Hypertension Insomnia Left carpal tunnel syndrome Screening mammogram, encounter for Tendinitis of right peroneus brevis tendon Surgical History Surgical History ) History of bunionectomy (~2012) History of carpal tunnel release 1999, 2014 History of cholecystectomy (~1999) History of hysterectomy (~2013) Hx of breast reduction, elective (~1994) S/P cubital tunnel release 2017 Family History Family History ) Father Depression Heart disease Mother Depression Hypertension Grandparent Diabetes mellitus Other Family history of arthritis Family history of heart disease in male family member before age 55 Social History Social History ) Smoking packs per day: 0.5 Smoking cigarettes per day: 10.0 Years smoked: 40 Smoking pack-years: 20.00 Smoking status: Current every day smoker Tobacco type: cigarettes Additional smoking assessment comments: Currently quitting smoking Alcohol intake: current Alcohol use details: rum; maybe 2 per month Substance use: former Substance use type: does not use Living arrangements: other Additional living arrangements comments: Occupation/Education: retired 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 There is no relevant family history pertinent to the presenting complaint Exam Narrative: GENERAL: Well-appearing, well-nourished, and in no acute distress. HEAD: Normocephalic, atraumatic. EYES: PERRLA, sclera clear, and EOMI. No nystagmus. Sclera and conjunctivae clear. Corneal abrasion noted on Wood's lamp exam, see note. Upper and lower eyelid unremarkable, no periorbital edema noted ENT: Nares clear, turbinates pink, no rhinorrhea or epistax
== END 2022-11-16 12:24 | disposition home or self-care (01) ==
PROVIDERS: Emergency Provider Nurse Practitioner
DX: S05.01XA Injury of conjunctiva and corneal abrasion without foreign body, right eye, initial encounter (principal); X58.XXXA Exposure to other specified factors, initial encounter; F41.9 Anxiety disorder, unspecified; F32.A Depression, unspecified; K21.9 Gastro-esophageal reflux disease without esophagitis; I10 Essential (primary) hypertension; Z87.891 Personal history of nicotine dependence
CPT/HCPCS: 99213; A9270; G0463

== ENCOUNTER 2023-04-01 09:52 | Outpatient (CLI) | payer OTHER, SELFPAY ==
--- NOTE | ~2023-04-01 | MM_ITS ---
EXAMINATION: MM screening kota BI w nicholas HISTORY: Screening TECHNIQUE: Craniocaudal and mediolateral oblique 3-D tomosynthesis images were obtained and synthetic 2-D images were generated. CAD analysis was submitted and interpreted. COMPARISON: Comparison to multiple prior studies sequentially, with oldest reviewed study dated 11/08. BREAST PARENCHYMAL COMPOSITION: Breast composed of scattered areas of fibroglandular density FINDINGS: There is no evidence of suspicious mass, calcification, or architectural distortion to sugg est malignancy in either breast. There has been no suspicious interval change. IMPRESSION: 1. No mammographic evidence of malignancy. 2. Recommend routine screening mammography in one year. BI-RADS Category 1: Negative Reviewed, dictated and finalized at location A. 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
== END 2023-04-01 09:53 | disposition home or self-care (01) ==
PROVIDERS: PCP Nurse Practitioner Family; Visit Provider Obstetrics & Gynecology
DX: Z12.31 Encounter for screening mammogram for malignant neoplasm of breast (principal)
CPT/HCPCS: 77063; 77067

== ENCOUNTER 2023-06-19 10:57 | Outpatient (CLI) | payer OTHER, SELFPAY ==
--- NOTE | ~2023-06-19 | DEXA_ITS ---
Bone Density Report Name: COLLEEN ALLEN Age: 62 Sex: Female Ethnicity: White Date of : 1960 Indication: postmenopausal; screening for osteoporosis; parental hip fracture; height loss; hysterectomy; Referring Provider: Coby Acosta Study: Bone densitometry was performed. Exam Date: June 19, 2023 Accession number: [id number] Bone Density: Region BMD T-score Z-score Classification AP Spine (L1-L4) 0.775 -2.5 -0.9 Osteoporosis Femoral Neck (Left) 0.571 -2.5 -1.1 Osteoporosis Total Hip (Left) 0.725 -1.8 -0.7 Osteopenia Femoral Neck (Right) 0.596 -2.3 -0.9 Osteopenia Total Hip (Right) 0.717 -1.8 -0.8 Osteopenia Total Hip Mean 0.721 -1.8 -0.8 Osteopenia World Health Organization criteria for BMD impression classify patients as: Normal (T-score at or above -1.0), Osteopenia (T-score between -1.0 and -2.5), or Osteoporosis (T-score at or below -2.5). 10-year Fracture Risk: FRAX not reported because: Some T-score for Spine Total or Hip Total or Femoral Neck at or below -2.5 Clinical Information Provided by Patient: Parent has had a hip fracture Smokes Has used the following medications: Vitamin D, Calcium Has the following medical conditions: Hysterectomy Patient maximum height was 67.5 Menopause Age: 55 No regular weight bearing exercise Does not regularly consume dairy products Drinks caffeinated beverages Onset of menses at age 13 Number of children 2 Impression: The patient has osteoporosis, based on the Total Spine T-score. The patient has risk factors, including: parental hip fracture, smoking. Discussion: INCREASED RISK OF FRACTURE. BONE DENSITY IS UNDESIRABLY LOW AT ONE OR MORE SKELETAL SITES, CONSISTENT WITH POSTMENOPAUSAL OSTEOPOROSIS. This patient's lowest T-score meets the World Health Organization's (WHO) criteria for osteoporosis at one or more sites (T-score -2.5 or below). In untreated patients, the risk of osteoporotic fracture increases approximately two-fold for each 1.0 SD decrease in T-score. Low bone density is not the only risk factor for fracture; also consider factors such as patient's age, frailty or poor health, risk of falling, risk of injury, previous osteoporotic fracture, family history of osteoporosis, cigarette smoking, low body weight, etc. Not everyone with low bone mineral density has osteoporosis; osteomalacia and other metabolic bone disorders should also be considered. Patients who have osteoporosis should be evaluated for specific diseases and conditions (secondary causes) that may cause or contribute to bone loss. The [place] Association of Clinical Endocrinologists (AACE) and National Osteoporosis Foundation (NOF) recommend pharmacologic intervention for all postmenopausal women whose T-score is in this range. The patient should follow a healthful lifestyle (good n
== END 2023-06-19 10:58 ==
LOC: MICIMG 10:57
PROVIDERS: PCP Nurse Practitioner Family; Visit Provider Nurse Practitioner Family
DX: N95.8 Other specified menopausal and perimenopausal disorders (principal); M81.0 Age-related osteoporosis without current pathological fracture; M85.852 Other specified disorders of bone density and structure, left thigh; M85.851 Other specified disorders of bone density and structure, right thigh
CPT/HCPCS: 77080

== ENCOUNTER 2023-09-29 10:03 | Outpatient (CLI) | payer OTHER, SELFPAY ==
--- NOTE | ~2023-09-29 | XR_ITS ---
Lumbosacral Spine: AP and lateral views Clinical History: Pain Findings: There is mild levoscoliosis. No fracture or subluxation. No flexion or extension instabilit y evident. There is severe facet arthropathy at L4-L5 and L5-S1. There is moderate facet arthropathy in the remaining lumbar spine. Intervertebral disc spaces are well preserved. The sacroiliac joints a re normally outlined. Impression: Facet arthropathy, as detailed above. Levoscoliosis. Reviewed, dictated and finalized at location M. Impression: Facet arthropathy, as detailed above. Levoscoliosis.
--- NOTE | ~2023-09-29 | MR_ITS ---
MRI of the lumbar spine Clinical History: Spondylosis Technique: Axial T2-weighted images, and sagittal T1-weighted, T2-weighted, and T2 fat-sat images wer e acquired. COMPARISON: 08/11/2020 Findings: There is no fracture or subluxation of the lumbar spine. Vertebral bodies maintain normal h eight and alignment. No bone marrow signal abnormality seen. At L1-L2, there is no disc bulge or herniation. There is mild facet joint hypertrophy. No central can al stenosis or neural foraminal narrowing. At L2-L3, there is no disc bulge or herniation. There is mild facet arthropathy. No central canal kristie nosis or neural foraminal narrowing. At L3-L4, there is minimal disc bulge and moderate facet arthropathy. No central canal stenosis or ne ural foraminal narrowing. At L4-L5, there is mild diffuse disc bulge with advanced facet arthropathy. No central canal stenosis . There is minimal bilateral neural foraminal narrowing. At L5-S1, there is mild disc bulge and advanced facet arthropathy. No central canal stenosis. There i s minimal bilateral neural foraminal narrowing. Impression: Mild degenerative spondylosis, as above. Reviewed, dictated and finalized at location M. Impression: Mild degenerative spondylosis, as above.
== END 2023-09-29 10:04 ==
LOC: MICIMG 10:04
PROVIDERS: PCP Nurse Practitioner Family; Visit Provider Nurse Practitioner Family
DX: M47.816 Spondylosis without myelopathy or radiculopathy, lumbar region (principal)
CPT/HCPCS: 72110; 72148

== ENCOUNTER 2023-10-08 11:26 | Emergency (ER) | payer OTHER, SELFPAY ==
[2023-10-08 11:33] VITALS: BP 124/74; PULSE 80; RESP 16; TEMP 36.8; O2SAT 98
--- NOTE | 2023-10-08 11:47 | ED.EAR ---
HPI - Ear Problem General Chief complaint: Ear Stated complaint: SINUS CONGESTION/EARACHE Time Seen by Provider: 10/08/23 11:47 Source: patient and RN notes reviewed Mode of arrival: ambulatory Limitations: no limitations History of Present Illness HPI Narrative: 62-year-old female presents with concern for 4 day history of sinus congestion, pressure, headache, ear pain. She reports she is using Flonase with some relief. She denies fever, body aches, chills, sweats. Denies known sick contacts. MD Complaint: ear pain Related Data Home Medications Medication Instructions Recorded Confirmed buspirone 10 mg tablet 10 mg PO TID 04/30/22 10/08/23 Allergies Allergy/AdvReac Type Severity Reaction Status Date / Time No Known Allergies Allergy Verified 10/08/23 11:41 Review of Systems Review of Systems: CONSTITUTIONAL: Denies malaise, chills, sweats, or fever. EYES: Denies visual changes, redness, or discharge. ENT: Reports rhinorrhea, congestion, sinus pain. Reports bilateral ear pain CARDIOVASCULAR: Denies chest pain, palpitations, or edema. RESPIRATORY: Denies cough. Denies dyspnea. GASTROINTESTINAL: Denies abdominal pain, nausea, vomiting, diarrhea SKIN: Denies rash or itching. MUSCULOSKELETAL: Denies myalgia. NEUROLOGIC: Denies headache. All systems reviewed & are unremarkable except as noted in HPI and below PMFSH Past Medical History Medical History Anxiety Cubital tunnel syndrome on left Depression Encounter for postoperative care GERD (gastroesophageal reflux disease) Hallux rigidus of left foot Hallux valgus of right foot Hypertension Insomnia Left carpal tunnel syndrome Screening mammogram, encounter for Tendinitis of right peroneus brevis tendon Surgical History Surgical History History of bunionectomy (~2012) History of carpal tunnel release 1999, 2014 History of cholecystectomy (~1999) History of hysterectomy (~2013) Hx of breast reduction, elective (~1994) S/P cubital tunnel release 2009, 2017 Family History Family History Father Depression Heart disease Mother Depression Hypertension Grandparent Diabetes mellitus Other Family history of arthritis Family history of heart disease in male family member before age 55 Social History Social History Smoking packs per day: 0.5 Smoking cigarettes per day: 10.0 Years smoked: 40 Smoking pack-years: 20.00 Smoking status: Current every day smoker Tobacco type: cigarettes Additional smoking assessment comments: Currently quitting smoking Alcohol intake: current Alcohol use details: rum; maybe 2 per month Substance use: former Substance use type: does not use Lack of Transportation: No Lack of Food: Never True Current Housing: I Have Housing Concerned About Future Housing: No Difficulty Paying Gas/Electric Bills: No Difficulty Paying for Meds: No Currently Unemployed: Decline to Answer Education: Bachelor's Degree Difficulty w/ Childcare or Family Care: No Living arrangements: other Additional living arrangements comments: Occupation/Education: retired 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 There is no relevant family history pertinent to the presenting complaint Exam Narrative: GENERAL: Well-appearing, well-nourished, and in no acute distress. HEAD: Normocephalic EYES: PERRLA, conjunctivae clear ENT: Nares liz
== END 2023-10-08 12:01 | disposition home or self-care (01) ==
PROVIDERS: Emergency Provider Nurse Practitioner; PCP Nurse Practitioner Family
DX: J06.9 Acute upper respiratory infection, unspecified (principal); F17.210 Nicotine dependence, cigarettes, uncomplicated; K21.9 Gastro-esophageal reflux disease without esophagitis; I10 Essential (primary) hypertension; F41.9 Anxiety disorder, unspecified; F32.A Depression, unspecified
CPT/HCPCS: 99213; G0463

== ENCOUNTER 2024-01-06 12:37 | Emergency (ER) | payer OTHER, SELFPAY ==
--- NOTE | ~2024-01-06 | XR_ITS ---
CHEST RADIOGRAPH, PA AND LATERAL CLINICAL HISTORY: cough for 4 days, coarse lung sounds, smoker . COMPARISON: 06/18/2023 TECHNIQUE: PA and lateral views of the chest. FINDINGS The cardiomediastinal silhouette is unremarkable. The lungs are clear. Visualized osseous structures and soft tissues are unremarkable. IMPRESSION: No focal infiltrate or effusion. If clinical suspicion persists, cross-sectional imaging (noncontrast enhanced CT examination of the c hest) is suggested for further evaluation. Reviewed, dictated and finalized at location A. IMPRESSION: No focal infiltrate or effusion. If clinical suspicion persists, cross-sectional imaging (noncontrast enhanced C T examination of the chest) is suggested for further evaluation.
--- NOTE | 2024-01-06 12:39 | ED.URI ---
HPI - URI/Sore Throat General Chief Complaint: Upper Respiratory Infection Stated Complaint: Cold Symptoms Time Seen by Provider: 01/06/24 12:38 Source: patient Mode of arrival: ambulatory Limitations: no limitations History of Present Illness HPI Narrative: Sloane is a 63-year-old female patient presenting to the clinic today with complaints of cough and nasal congestion times 3-4 days. She reports no headache, fever, chills, or body aches. Mom states the nasal congestion is clear. She denies any shortness of breath or chest pain. States since last night she has a nagging nonproductive cough that kept her up all night. Does feels though she has nasal drainage going in the back of her throat. Patient is a current smoker-half a pack a day for over 40 years MD elicited complaint: cough and nasal congestion Related Data Home Medications Medication Instructions Recorded Confirmed buspirone 10 mg tablet 10 mg PO TID 04/30/22 01/06/24 alprazolam 0.5 mg tablet mg 01/06/24 gabapentin 600 mg tablet 1,200 mg PO TID 01/06/24 01/06/24 hydroxyzine pamoate 25 mg capsule 25 mg PO BID 01/06/24 01/06/24 methocarbamol 750 mg tablet 750 mg PO TID 01/06/24 01/06/24 trazodone 100 mg tablet 100 mg PO HS 01/06/24 01/06/24 venlafaxine 150 mg 150 mg PO DAILY 01/06/24 01/06/24 capsule,extended release 24 hr vilazodone 40 mg tablet mg 01/06/24 Allergies Allergy/AdvReac Type Severity Reaction Status Date / Time No Known Allergies Allergy Verified 01/06/24 12:41 Review of Systems Review of Systems: Pertinent positives per HPI. Patient denies any fever, chills, rash, headache, visual changes, dizziness, shortness of breath, chest pain, palpitations, nausea, vomiting, diarrhea, constipation, abdominal pain, or any urinary issues. [facility] Past Medical History Medical History Anxiety Cubital tunnel syndrome on left Depression Encounter for postoperative care GERD (gastroesophageal reflux disease) Hallux rigidus of left foot Hallux valgus of right foot Hypertension Insomnia Left carpal tunnel syndrome Screening mammogram, encounter for Tendinitis of right peroneus brevis tendon Surgical History Surgical History History of bunionectomy (~2012) History of carpal tunnel release 1999, 2014 History of cholecystectomy (~1999) History of hysterectomy (~2013) Hx of breast reduction, elective (~1994) S/P cubital tunnel release 2017 Family History Family History Father Depression Heart disease Mother Depression Hypertension Grandparent Diabetes mellitus Other Family history of arthritis Family history of heart disease in male family member before age 55 Social History Social History Social History: declined JONATHANOJ 11/14/23 Smoking packs per day: 0.5 Smoking cigarettes per day: 10.0 Years smoked: 40 Smoking pack-years: 20.00 Smoking status: Current every day smoker Tobacco type: cigarettes Additional smoking assessment comments: Currently quitting smoking Alcohol intake: current Alcohol use details: rum; maybe 2 per month Substance use: former Substance use type: does not use Lack of Transportation: No Lack of Food: Never True Current Housing: I Have Housing Concerned About Future Housing: No Difficulty Paying Gas/Electric Bills: No Difficulty Paying for Meds: No Currently Unemployed: Decline to Answer Education: Bachelor's Degree Difficulty w/ Childcare or Family Care: No Living arrangements: other Additional living arrangements comments: Occupation/Education: retired 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
[2024-01-06 12:45] VITALS: BP 125/77; PULSE 84; RESP 16; TEMP 36.6; O2SAT 97
== END 2024-01-06 13:25 | disposition home or self-care (01) ==
PROVIDERS: Emergency Provider Nurse Practitioner Family
DX: J40 Bronchitis, not specified as acute or chronic (principal); J06.9 Acute upper respiratory infection, unspecified; F17.210 Nicotine dependence, cigarettes, uncomplicated; K21.9 Gastro-esophageal reflux disease without esophagitis; I10 Essential (primary) hypertension; F41.9 Anxiety disorder, unspecified; F32.A Depression, unspecified
CPT/HCPCS: 71046; 99213; G0463

== ENCOUNTER 2024-05-31 11:24 | Outpatient (CLI) | payer OTHER, SELFPAY ==
--- NOTE | ~2024-05-31 | CT_ITS ---
CT Scan of the Chest without Contrast: Clinical Indication: Lung cancer screening, nicotine dependence Technique: Contiguous sections were acquired throughout the chest without intravenous contrast. Dose reduction technique was used on this scan by utilizing automated exposure control and iterative recon struction technique. The dose-length product (DLP) was 90.81 mGy-cm. COMPARISON: 09/14/2022 Findings: There is no evidence of any significant mediastinal, hilar or axillary lymphadenopathy. The mediastin al soft tissues appear normal. There is no evidence of pleural or pericardial effusion. Is probable minimal tree-in-bud opacities are present in the upper lobes. Images through the upper abdomen reveal stable right adrenal nodule. Impression: Lung RADS 2: Benign appearance. 12 month follow-up screening CT advised. Probable minimal small airways infectious process in the upper lobes, similar to prior exam. Reviewed, dictated and finalized at [facility]. Impression: Lung RADS 2: Benign appearance. 12 month follow-up screening CT advised. Probable minimal small airways infectious process in the upper lobes, similar t o prior exam.
== END 2024-05-31 11:25 | disposition home or self-care (01) ==
PROVIDERS: PCP Nurse Practitioner Family; Visit Provider Nurse Practitioner Family
DX: Z12.2 Encounter for screening for malignant neoplasm of respiratory organs (principal); F17.210 Nicotine dependence, cigarettes, uncomplicated
CPT/HCPCS: 71271

== ENCOUNTER 2024-06-21 07:53 | Outpatient (CLI) | payer OTHER, SELFPAY ==
--- NOTE | ~2024-06-21 | MM_ITS ---
EXAMINATION: MM screening kota BI w nicholas HISTORY: Screening TECHNIQUE: Craniocaudal and mediolateral oblique 3-D tomosynthesis images were obtained and synthetic 2-D images were generated. CAD analysis was submitted and interpreted. COMPARISON: Comparison to multiple prior studies sequentially, with oldest reviewed study dated 04/2021. BREAST PARENCHYMAL COMPOSITION: Not dense: There are scattered areas of fibroglandular density. FINDINGS: There is no evidence of suspicious mass, calcification, or architectural distortion to sugg est malignancy in either breast. There has been no suspicious interval change. IMPRESSION: 1. No mammographic evidence of malignancy. 2. Recommend routine screening mammography in one year. BI-RADS Category 1: Negative Reviewed, dictated and finalized at location A.
--- OUTSIDE RECORDS SUMMARY | 2024-06-21 07:59 | XMS_ITS | Clinical Summary ---
Author Organization [facility] Address [address] [place] [address] [address] Phone Care Team Providers Care Diving Coach Name Role Phone Michael Gamble MD Primary Care Provider [phone] Allergies No known active allergies Medications ALPRAZolam (XANAX) 0.5 MG Tablet Take 0.5 mg by mouth 3 times daily as needed. Active losartan (COZAAR) 100 MG Tablet Take 100 mg by mouth daily. Active propranolol (INDERAL) 80 MG Tablet Take 80 mg by mouth 3 times daily. Active hydroCHLOROthia zide 25 MG Tablet Take 25 mg by mouth daily. Active traZODone (DESYREL) 100 MG Tablet Take 100 mg by mouth nightly. Active PAROXETINE HCL PO Take by mouth. Activ e polyethylene glycol (MIRALAX) Powder Use entire 255g bottle with 64oz of clear liquid as directed for colonoscopy prep. 255 g 7 Active omeprazole (PRILOSEC) 40 MG CAPSULE DELAYED RELEASE TAKE ONE CAPSULE BY MOUTH EVERY DAY 90 Cap 1 9 Active Family History Medical History Relation Name Comments Heart Attack Father Diabetes Maternal Grandmother Relation Name Status Comments Father Maternal Grandmother Social History Tobacco Use Types Packs/Day Years Used Date Smoking Tobacco: Every Day Cigarettes 1.5 20 Tobacco Cessation:Ready to Q uit: Yes Alcohol Use Standard Drinks/Week Comments No 0 (1 standard drink = 0.6 oz pur e alcohol) Comments Unknown Sex and Gender Information Value Date Recorded Sex Assigned at Not on file Legal Sex Female 12:26 AM CDT Gender Identity Not on file Sexual Orientation Not on file 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 Not on file Not on file Last Filed Vital Signs Vital Sign Reading Time Taken Comments Blood Pressure 126/82 08/15/2016 3:26 PM CDT Pulse 85 08/15/2016 3:26 PM CDT Temperature 36.1 C (97 F) 08/15/2016 3:26 PM CDT Respiratory Rate 16 08/15/2016 3:26 PM CDT Oxygen Saturation 95% 08/15/2016 3:26 PM CDT Inhaled Oxygen Concentration - - Weight 87.1 kg (192 lb) 08/15/2016 3:26 PM CDT Height 172.7 cm (5' 8 ) 08/15/2016 3:26 PM CDT Body Mass Index 29.19 08/15/2016 3:26 PM CDT Plan of Treatment Health Maintenance Due Date Last Done Comments Hepatitis C Virus (HCV) Screening 1960 TdaP Immunization 1960 Pap Smear 1981 Cervical Cancer Screening (CCS) 1990 HPV/Cotest 1990 Cologuard 2010 Immunochemical Fecal Occult Blood 2010 Mammogram 2010 Pneumococcal Immunization (50+ years) (1 of 1 - PCV) 2010 Zoster Immunization (1 of 2) 2010 Colonoscopy 11/05/2020 11/05/2018, 07/03/2017 Colorectal Cancer Screening 11/05/2020 Influenza Immunization (#1) 2023 SARS-COV-2 Immunization ( season) 2023 10/30/2021, 02/09/2021, 05/17/2020, Additional history exists Respiratory Syncytial Virus (RSV) Immunization (Adult) (1 - 1-dose 75+ series) 12/12/2035 11/05/2018, 07/03/2017 Hepatitis B Immunization Aged Out No longer eligible based on patient's age to complete this topic Meningococcal Immunization (ACWY) Aged Out No longer eligible based on patient's age to complete this topic Pneumococcal Immunization Combined Aged Out No longer eligible based on patient's age to complete this topic Rotavirus Immunization Aged Out No lo nger eligible based on patient's age to complete this topic Procedures Procedure Name Priority Date/Time Associated Diagnosis Comments COLONOSCOPY Routine 11/05/2018 from Last 3 Months or Most Recently Relevant to Health Maintenance Results * COLONOSCOPY (11/05/2018) Chi Delgado DO PROCEDURE/MINOR SURGICAL ORDERA BLES Final Result from Last 3 Months or Most Recently Relevant to Health Maintenance Insurance [facility] Care Teams Diving Coach Relationship Specialty Start Date End Date Michael Gamble MD [address] [place] [id number] PCP - General Internal Medicine 08/16/16
--- OUTSIDE RECORDS SUMMARY | 2024-06-21 07:59 | XMS_ITS | Clinical Summary ---
Author Organization [facility] Address [address] [place] [address] Care Team Providers Care Conference Center Coordinator Name Role Phone Michael Gamble MD Primary Care Provider [phone] Allergies No known active allergies Medications losartan 100 MG tablet Take 100 mg by mouth daily. 10/21/2019 Active HYDROcodone-daniele taminophen 5-325 MG tablet TAKE 1 TABLET BY MOUTH EVERY 6 HOURS NEEDED FOR PAIN 11/30/2019 Active hydroCHLOROthia zide 25 MG tablet Take 25 mg by mouth daily. Active ALPRAZolam 1 MG tablet TAKE 1 TABLET BY MOUTH THREE TIMES A DAY NEEDED 11/07/2019 Active omeprazole 40 MG capsule Take 40 mg by mouth every morning. 09/29/2019 Active propranolol LA 80 MG 24 hr capsule TAKE 1 CAPSULE BY MOUTH IN THE MORNING 10/28/2019 Active pramipexole 0.5 MG tablet Take 0.5 mg by mouth nightly at bedtime. 11/26/2019 Active traZODone 100 MG tablet Take 100 mg by mouth nightly at bedtime. 11/12/2019 Active venlafaxine XR 150 MG 24 hr capsule TAKE 1 CAPSULE BY MOUTH EVERY DAY IN THE MORNING 10/25/2019 Active VIIBRYD 40 MG tablet Take 40 mg by mouth every morning. 11/18/2019 Active traMADol (ULTRAM) 50 MG tabletIndicatio ns:Acute Pain < 3 Day Supply Take 1 tablet (50 mg total) by mouth every 6 (six) hours as needed for Pain. Indications: Acute Pain < 3 Day Supply 6 tablet 2019 Active busPIRone 5 MG tablet Take 5 mg by mouth 2 (two) times daily. Active azithromycin (ZITHROMAX Z-ZOË) 250 MG tablet 2 tabs x 1 day with 1 tab daily x 4 days 6 tablet 07/21/2021 Active benzonatate (TESSALON PERLES) 100 MG capsule Take 1 capsule (100 mg total) by mouth 3 (three) times daily as needed for Cough. 20 capsule 07/21/2021 Active Active Problems No known active problems Immunizations Name Administration Dates Next Due MODERNA COVID-19 (12+) MRNA, LNP-S, PF, 100 MCG/ 0.5 ML DOSE 05/17/2020,04/19/2020 Social History Tobacco Use Types Packs/Day Years Used Date Smoking Tobacco: Every Day Cigarettes Smokeless Tobacco: Never Alcohol Use Standard Drinks/Week Comments Yes 0 (1 standard drink = 0.6 oz pur e alcohol) occaionally AUDIT-C Answer Date Recorded Frequency of Alcohol Consumption Never 03/24/2019 Average Number of Drinks Not on file 020 Frequency of Binge Drinking Not on file 10/2019 PHQ-2 Answer Date Recorded PHQ-2 Score - If the patient scores above 3, please move on to questions 3-9 0 12/07/2019 Comments No Sex and Gender Information Value Date Recorded Sex Assigned at Not on file Legal Sex Female 7:08 PM CDT Gender Identity Not on file Sexual Orientation Not on file Last Filed Vital Signs Vital Sign Reading Time Taken Comments Blood Pressure 120/75 07/21/2021 11:29 AM CDT Pulse 82 07/21/2021 11:29 AM CDT Temperature 36.3 C (97.4 F) 07/21/2021 11:29 AM CDT Respiratory Rate 18 07/21/2021 11:29 AM CDT Oxygen Saturation 98% 07/21/2021 11:29 AM CDT Inhaled Oxygen Concentration - - Weight 77.1 kg (170 lb) 07/21/2021 11:29 AM CDT Height 172.7 cm (5' 8 ) 07/21/2021 11:29 AM CDT Body Mass Index 25.85 07/21/2021 11:29 AM CDT Plan of Treatment Health Maintenance Due Date Last Done Comments Colorectal Cancer Screening Colonoscopy (10 Years) 1960 Annual Physical 12/12/1963 Pneumococcal Vaccine: Pediatrics (0 to 5 Years) and At-Risk Patients (6 to 64 Years) (1 of 2 - PCV) 1966 Hepatitis C 1978 DTaP, Tdap and Td Vaccines ( 1 - Tdap) 12/12/1979 Mammogram Screening 2000 Zoster Vaccines (1 of 2) 2010 COVID-19 Vaccine (3 - 2023-2 5 season) 2023 05/17/2020, 04/19/2020 RSV Immunization or 60+ Years (1 - 1-dose 75+ series) 12/12/2035 Meningococcal B Vaccine Aged Out No l onger eligible based on patient's age to complete this topic Meningococcal Vaccine Aged Out No frannie colton eligible based on patient's age to complete this topic RSV Immunizations Under 20 Months Aged Out No longer eligible b ased on patient's age to complete this topic Insurance [employer] [facility] Care Teams Conference Center Coordinator Relationship Specialty Start Date End Date Michael Gamble MD [address] [place] [id number] PCP - General INTERNAL MEDICINE 03/24/19
== END 2024-06-21 07:54 | disposition home or self-care (01) ==
LOC: ANHIMG 07:54
PROVIDERS: PCP Nurse Practitioner Family; Visit Provider Obstetrics & Gynecology
DX: Z12.31 Encounter for screening mammogram for malignant neoplasm of breast (principal)
CPT/HCPCS: 77063; 77067

== ENCOUNTER 2024-07-21 01:57 | Day surgery (SDC) | payer OTHER, SELFPAY ==
[2024-07-09 13:48] VITALS: BMI 27.4
--- OUTSIDE RECORDS SUMMARY | 2024-07-21 02:00 | XMS_ITS | Clinical Summary ---
Author Organization [facility] Address [address] [place] [address] Care Team Providers Care Dental Laboratory Technology Teacher Name Role Phone Michael Gamble MD Primary Care Provider [phone] Allergies No known active allergies Medications losartan [...] Active Problems No known active problems Immunizations Immunization Administration Dates Next Due MODERNA COVID-19 (12+) [...] Colonoscopy (10 Years) 1960 Annual Physical 12/12/1963 Hepatitis C 1978 DTaP, Tdap and Td Vaccines ( 1 - Tdap) 12/12/1979 Pneumococcal Vaccine: 50+ Years (1 of 2 - PCV) 12/12/1979 Mammogram Screening 2000 Zoster Vaccines (1 [...] patient's age to complete this topic Insurance 2sms OPEN ACCESS [facility] Care Teams Dental Laboratory Technology Teacher Relationship Specialty Start Date End Date Michael Gamble MD [address] [place] [id number] PCP - General INTERNAL MEDICINE 03/24/19
--- OUTSIDE RECORDS SUMMARY | 2024-07-21 02:00 | XMS_ITS | Clinical Summary ---
Author Organization [facility] Address [address] [place] [address] [address] Phone Care Team Providers Care Can Filling Machine Operator Name Role Phone Michael Gamble MD Primary Care Provider Allergies No known active allergies Medications ALPRAZolam [...] Recently Relevant to Health Maintenance Insurance [facility] OA Care Teams Can Filling Machine Operator Relationship Specialty Start Date End Date Michael Gamble MD [address] [place] [id number] PCP - General Internal Medicine 08/16/16
--- OUTSIDE RECORDS SUMMARY | 2024-07-21 02:01 | XMS_ITS | Patient Health Record ---
Author Organization [facility] [employer] [facility] Address [address] [facility] [address] [place] [address] Care Team Providers Care Health Practice Manager Name Role Phone Coby John Primary Care Provider Unav ailshey CheungcarolinaJessica Unavailable [phone] Migration, Provider Unavailable Unavailable Allergies No Known Allergies Results Component Value Reference Range Notes NEED PHYSICIAN SIGNATURE Reviewed date:05/28/2024 02:14:08 PM Interpretation: Performing Lab: Notes/Report: Alprazolam Reviewed date:05/28/2024 12:29:14 PM Interpretation: Performing Lab:[address] [place] [address], [address] [place] [address], Director - [id number] Notes/Report: An exception occurred while processing this report and so it has incomplete data. Please contact [employer] for assistance. Alprazolam 63.7 20.0 ng/mL Medicated Consistent PDF Report CE_OUT_RAW_CO [email or web address]_SRC_ORU UDT Reviewed date:05/25/2024 09:48:05 AM Interpretation: Performing Lab: Notes/Report: THC NEG 0 - 50 ng/ml Cocaine NEG 0 - 300 ng/ml Amphetamine NEG 0 - 1000 ng/ml Buprenorphine (BUP) NEG 0 - 10 ng/ml Secobarbital (Bar) NEG 0 - 300 ng/ml Oxazepam (BZO) POS 0 - 300 ng/ml 2-qaurbddyvb-6,2-dsncgirn-9, 3-diphenyl pyrrolidine (EDDP) NEG 0 - 300 ng/ml Methamphetamine (MET) NEG 0 - 1000 ng/ml Methylenedioxymethamphetamine (MDMA) NEG 0 - 500 ng/ml Morphine (MOP 300/[id number]) NEG 0 - 300 ng/ml Methadone (MTD) NEG 0 - 300 ng/ml Phencyclidine (PCP) NEG 0 - 25 ng/ml Nortriptyline (TCA) NEG 0 - 1000 ng/ml Oxycodone NEG 0 - 300 ng/ml x NEG 0 - 300 ng/ml Reason For Referral No Information Medications Medication SIG (Take, Route, Frequency, Duration) Notes Start Date End Date Status ALPRAZolam 0.5 MG 1 tablet Oral three times a day for 30 days 05/25/2024 Active busPIRone HCl 15 MG 1 tablet Oral THREE times a day for 90 days d/c 10 mg dose d/c Vistaril Active traZODone HCl 100 MG 1 tablet at bedtime Oral Once a day for 90 days Active traMADol HCl 50 MG Oral 06/23/2023 Not-Taking Omeprazole 40 MG Oral 06/23/2023 Ac tive predniSONE 20 MG Oral 06/23/2023 No t-Taking Propranolol HCl ER 80 MG Oral 06/23/2023 Active Venlafaxine HCl ER 150 MG TAKE 1 CAPSULE BY MOUTH EVERY DAY WITH FOOD for 90 Not-Taking Venlafaxine HCl ER 75 MG Oral 06/23/2023 Not-Taking Losartan Potassium 100 MG Oral 06/23/2023 Active methylPREDNISolone 4 MG Oral 06/23/2023 Not-Taking Pramipexole Dihydrochloride 0.5 MG Oral 06/23/2023 Activ e Zepbound 5 MG/0.5ML INJECT 2.5 MG (0.5 ML) SUBCUTANEOUSLY WEEKLY FOR 4 WEEKS Subcutaneous for 28 days Active hydroCHLOROthiazide 25 MG Oral 06/23/2023 Active ALPRAZolam 0.5 MG TAKE 1 TABLET BY MOUTH THREE TIMES A DAY for 30 04/03/2024 Active Venlafaxine HCl ER 150 MG 1 capsule with food Oral Once a day for 90 days Active Gabapentin 600 MG Oral 06/23/2023 A ctive Methocarbamol 750 MG Oral 06/23/2023 Active Viibryd 40 MG 1 tablet with food Oral Once a day for 90 days Active Cholecalciferol 1.25 MG (43277 UT) Oral 06/23/2023 Active Atorvastatin Calcium 20 MG Oral 06/23/2023 Active Vilazodone HCl 40 MG Oral 06/23/2023 Active Benzonatate 100 MG Oral 06/23/2023 Not-Taking Immunizations Vaccine Route Administration Date Status Comme nts Tdap Unknown 08/18/2020 Administered Moderna Covid-19 Vaccine 1st dose Unknown 04/19/2020 Ad ministered Moderna Covid-19 Vaccine 1st dose Unknown 05/17/2020 Ad ministered Moderna Covid-19 Vaccine 1st dose Unknown 02/09/2021 Ad ministered Moderna Covid-19 Vaccine 1st dose Unknown 10/30/2021 Ad ministered Influenza, unspecified formulation Unknown 11/15/2021 A dministered Influenza virus vaccine, quadrivalent (IIV4), split virus, 0.25 mL dosage Unknown 02/14/2021 Administered Social History Tobacco Use: Social History Observation Description Date Details (start date - stop date) Current Smoker NA - NA Sex Assigned At : Social History Observation Description Sex Assigned At Female Household Question Answer Notes Marital status: Number of adults in household: 2 Number of children in household: 0 Level of education: finished college 4 years retired Sexual History Question Answer Notes Had sex in the past 12 months (vaginal, oral, or anal)? Yes with Men only Tobacco Control (Standard) Question Answer Notes Tobacco use: Current smoker How often do you smoke cigarettes? Every day How many cigarettes a day do you smoke? 6-10 How soon after you wake up d o you smoke your first cigarette? 31-60 minutes Are you interested in quitting? Ready to quit Additional Findings: Tobacco user Modera te cigarette smoker (10-19 cigs/day) AUDIT-C (Standard) Question Answer Notes Did you have a drink contain ing alcohol in the past year? Yes How often did you have six o r more drinks on one occasion in the past year? Less than monthly (1 point) How many drinks did you have on a typical day when you were drinking in the past year? 1 or 2 drinks (0 point) How often did you have a dri nk containing alcohol in the past year? Monthly or less (1 point) Points 2 Interpretation Negative Section Notes: Substance UseDo you or have you ever smoked tobacco?: Current every day smokerHow many years have you smoked tobacco?: 30How much tobacco do you smoke?: 1 pack per dayDo you or have you ever used any other forms of tobacco or nicotine?: YesDo you or have you ever used e-cigarettes or vape?: Never used electronic cigarettesDo you or have you ever used smokeless tobacco?: Never used smokeless tobaccoHow much tobacco do you chew?: noneWhat was the date of your most recent tobacco screening?: 05/27/2023Has tobacco cessation counseling been provided?: YesOn what date was tobacco cessation counseling provided?: 05/27/2023What is your level of alcohol consumption?: OccasionalHow many years have you consumed alcohol?: 40Have you ever been counseled for unhealthy alcohol use?: NoDo you use any illicit or recreational drugs?: NoWhich illicit or recreational drugs have you used?: NoneHave you used IV drugs?: NoWhat is your level of caffeine consumption?: HeavyEducation and OccupationWhat is the highest grade or level of school you have completed or the highest degree you have received?: Bachelor's degree (e.g., BA, AB, BS)Are you currently in school?: NoAre you currently employed?: No (Notes: retired)Who is your employer?: RetiredMarriage and SexualityWhat is your relationship status?: MarriedAre you sexually active?: YesDo you use protection during sex?: NoHow many children do you have?: 2Home and EnvironmentAre you a caregiver?: NoDo you have smoke and carbon monoxide detectors in your home?: YesAre you passively exposed to smoke?: YesAre there any smokers in your house?: YesAre there any guns present in your home?: YesDiet and ExerciseWhat type of diet are you following?: RegularLifestyleDo you feel stressed (tense, restless, nervous, or anxious, or unable to sleep at night)?: Only a littleDo you use your seat belt or car seat routinely?: YesAdvance DirectiveDo you have an advance directive?: YesDo you have a medical power of assistant prosecuting attorney?: YesPublic Health and TravelHave you been to an area known to be high risk for COVID-19?: NoIn the 14 days before symptom onset, have you had close contact with a laboratory-confirmed COVID-19 while that case was ill?: NoIn the 14 days before symptom onset, have you had close contact with a person who is under investigation for COVID-19 while that person was ill?: NoDo you reside in or have you traveled to an area where Ebola virus transmission is active?: NoActivities of Daily LivingAre you able to care for yourself?: YesAre you blind or do you have difficulty seeing?: NoAre you deaf or do you have serious difficulty hearing? : NoDo you have difficulty concentrating, remembering or making decisions?: NoDo you have difficulty walking or climbing stairs?: NoDo you have difficulty dressing or bathing?: NoDo you have difficulty doing errands alone?: NoAre you able to walk?: Yes: walks without restrictionsDo you have transportation difficulties?: NoOtherHigh blood pressure: YesHigh Cholesterol: NoPast steroid/HgH use?: NoGender Identity and LGBTQ IdentityGender identity: Identifies as FemaleAssigned sex at : FemaleSexual orientation: Straight or heterosexual Problems Problem Type SNOMED Code ICD Code Onset Dates Problem Status W/U Status Risk Notes Problem Generalized anxiety disorder (03125955) Generalized anxiety disorder (F41.1) 06/23/19 24 Active confirmed Problem Primary insomnia (8229176) Primary insomnia (F51.01) 06/23/19 24 Active confirmed Problem Attention deficit hyperactivity disorder, combined type (62787632) Attention-deficit hyperactivity disorder, combined type (F90.2) 06/23/19 24 Active confirmed Problem Long-term current use of drug therapy (843128229) 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 (Z79.899) 06/23/19 24 Active confirmed Problem 840781394 MDD (major depressive disorder), recurrent episode, mild (F33.0) Active confirmed Problem 16388178 Essential hypertension (I10) Active confirmed Vital Signs Heart Rate 77 /min 05/25/2024 Height-cm 172.72 cm 05/25/2024 Blood pressure diastolic 75 mm Hg 05/25/2024 Weight-kg 79.65 kg 05/25/2024 Height 68.00 in 05/25/2024 Blood pressure systolic 110 mm Hg 05/25/2024 Weight 175.6 lbs 05/25/2024 BMI 26.7 kg/m2 05/25/2024 Encounters Encounter Location Date Provider Diagnosis [facility] [employer] [facility] [address] [address] 08/26/2023 Jessica Holder MDD (major depressiv e disorder), recurrent episode, mild F33.0 ; Generalized anxiety disorder F41.1 ; Primary insomnia F51.01 ; Attention-deficit hyperactivity disorder, combined type F90.2 and 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 Z79.899 [facility] [place] [id number] [address] 11/27/2023 Jessica Glory MDD (major depressiv e disorder), recurrent episode, mild F33.0 ; Generalized anxiety disorder F41.1 ; Primary insomnia F51.01 ; Attention-deficit hyperactivity disorder, combined type F90.2 and Other longterm (current) drug therapy Z79.[address] [address] 02/26/2024 Jessica Glory MDD (major depressiv e disorder), recurrent episode, mild F33.0 ; Generalized anxiety disorder F41.1 ; Primary insomnia F51.01 ; Attention-deficit hyperactivity disorder, combined type F90.2 ; 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 Z79.899 and Essential hypertension I10 [address] [address] 05/25/2024 Jessica Glory Nicotine use Z72.0 ; Encounter for screening for cardiovascular disorders Z13.6 ; MDD (major depressive disorder), recurrent episode, mild F33.0 ; Generalized anxiety disorder F41.1 ; Primary insomnia F51.01 ; Attention-deficit hyperactivity disorder, combined type F90.2 ; 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 Z79.899 and Essential hypertension I10 [address] [address] 08/02/2023 Provider Migration [address] [address] 08/03/2023 Provider Migration Assessments Encounter Date Diagnosis (ICD Code) Assessment Notes Treatment Notes Treatment Clinical Notes Section Notes 08/26/2023 Generalized anxiety disorder (ICD-10 - F41.1) Mild major depression - Viibryd 40 mg daily eat 350 calories with medication venlafaxine ER 150 MG DAILY IN AM - monitor B/P educated on all medications, benefits, side effects and risk, and educated on depression, anxiety, and mood d/o and educated on compliance of medications, appointment's, continue therapy discussion with patient about course of treatment and patient instructions. obtain labs PCPSeen RN HEDIS 2022 colonoscopy due 2023 F32.0: Major depressive disorder, single episode, mild 2. Generalized anxiety disorder F41.1: Generalized anxiety disorder Buspar 10 mg three times a day Xanax 0.5 mg three times a day 3. Attention deficit hyperactivity disorder, combined type - no rx Turner and WESLEY-2 test reviewedMESA - did not identify any impairment in visuospatial classification , working memory, or alternative attention capabilities, executive control meeting demands of life, ability to use her working memory, solve problems, control self reasonable well in most situations, WESLEY-2 and self rating scale are congruent ADHD will read self help books and pod cast in ADHDpatient took SHERRY and WESLEY-2 test just for self awareness and not for medication for ADD/ADHDF90.2: Attention-defi cit hyperactivity disorder, combined type 4. Primary insomnia -Trazodone 100 mg bedtime F51.01: Primary insomnia 5. 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 obtain labs PCPSeen RN HEDIS 2022 colonoscopy due 1655V12.0: Major depressive disorder, single episode, mild 2. Generalized anxiety qvcqkpwmA15.1: Generalized anxiety disorderBuspar 10 mg three times a day Xanax 0.5 mg three times a day 3. Attention deficit hyperactivity disorder, combined type - no rx Turner and WESLEY-2 test reviewedMESA - did not identify any impairment in visuospatial classification, working memory, or alternative attention capabilities, executive control meeting demands of life, ability to use her working memory, solve problems, control self reasonable well in most situations, WESLEY-2 and self rating scale are congruent ADHD will read self help books and pod cast in ADHDpatient took SHERRY and WESLEY-2 test just for self awareness and not for medication for ADD/ADHDF90.2: Attention-deficit hyperactivity disorder, combined type 4. Primary insomnia -Trazodone 100 mg fxnajmgF25.01: Primary insomnia 5. Long-term drug therapy -will monitor UDS r/t LlmyhK22.899: Other longterm (current) drug therapy , Depression Treatment: Care Instructions material was published Mild major depression - Viibryd 40 mg daily eat 350 calories with medication venlafaxine ER 150 MG DAILY IN AM - monitor B/P educated on all medications, benefits, side effects and risk, and educated on depression, anxiety, and mood d/o and educated on compliance of medications, appointment's, continue therapy discussion with patient about course of treatment and patient instructions. obtain labs PCPSeen RN HEDIS 2022 colonoscopy due 2023 F32.0: Major depressive disorder, single episode, mild 2. Generalized anxiety disorder F41.1: Generalized anxiety disorder Buspar 10 mg three times a day Xanax 0.5 mg three times a day 3. Attention deficit hyperactivity disorder, combined type - no rx Turner and WESLEY-2 test reviewedMESA - did not identify any impairment in visuospatial classification , working memory, or alternative attention capabilities, executive control meeting demands of life, ability to use her working memory, solve problems, control self reasonable well in most situations, WESLEY-2 and self rating scale are congruent ADHD will read self help books and pod cast in ADHDpatient took SHERRY and WESLEY-2 test just for self awareness and not for medication for ADD/ADHDF90.2: Attention-defi cit hyperactivity disorder, combined type 4. Primary insomnia -Trazodone 100 mg bedtime F51.01: Primary insomnia 5. Long-term drug therapy -will monitor UDS r/t Xanax Z79.899: Other longterm (current) drug therapy , Depression Treatment: Care Instructions material was published 11/27/2023 MDD (major depressive disorder), recurrent episode, mild (ICD-10 - F33.0) educated on all medications, benefits, side effects and risk, and educated on depression, anxiety, and mood d/o and educated on compliance of medications, appointment's, continue therapy discussion with patient about course of treatment and patient instructions. colonoscopy due 2023 3. Attention deficit hyperactivity disorder, combined type - no rx Turner and WESLEY-2 test reviewedMESA - did not identify any impairment in visuospatial classification, working memory, or alternative attention capabilities, executive control meeting demands of life, ability to use her working memory, solve problems, control self reasonable well in most situations, WESLEY-2 and self rating scale are congruent ADHD will read self help books and pod cast in ADHDpatient took SHERRY and WESLEY-2 test just for self awareness and not for medication for ADD/ADHD major depression - Viibryd 40 mg daily eat 350 calories with medication venlafaxine ER 150 MG DAILY IN AM - monitor B/P educated on all medications, benefits, side effects and risk, and educated on depression, anxiety, and mood d/o and educated on compliance of medications, appointment's, continue therapy discussion with patient about course of treatment and patient instructions. obtain labs PCP Seen RN HEDIS 2022 colonoscopy due 2023 2. Generalized anxiety disorder Buspar 10 mg three times a day Xanax 0.5 mg three times a day Add Visatril 25 mg as needed twice a day for anxiety educated on all rx, benefits, side effects and risk 3. Attention deficit hyperactivity disorder, combined type - no rx Turner and WESLEY-2 test reviewed TURNER - did not identify any impairment in visuospatial classification , working memory, or alternative attention capabilities, executive control meeting demands of life, ability to use her working memory, solve problems, control self reasonable well in most situations, WESLEY-2 and self rating scale are congruent ADHD will read self help books and pod cast in ADHD patient took SHERRY and WESLEY-2 test just for self awareness and not for medication for ADD/ADHD 4. Primary insomnia -Trazodone 100 mg bedtime 5. Long-term drug therapy -will monitor UDS r/t Xanax 02/26/2024 Generalized anxiety disorder (ICD-10 - F41.1) major depression - Viibryd 40 mg daily eat 350 calories with medication venlafaxine ER 150 MG DAILY IN AM - monitor B/P- on B/P RX seen PCP 12/08- see every 3 months see pain management educated on all medications, benefits, side effects and risk, and educated on depression, anxiety, and mood d/o and educated on compliance of medications, appointment's, continue therapy discussion with patient about course of treatment and patient instructions. obtain labs PCP Seen RN HEDIS 2023 colonoscopy due 2024 2. Generalized anxiety disorder Increase Buspar 15 mg three times a day Xanax 0.5 mg three times a day D/C Visatril 25 mg as needed twice a day for anxiety- Patient reported not helped educated on all rx, benefits, side effects and risk 3. Attention deficit hyperactivity disorder, combined type - no rx Turner and WESLEY-2 test reviewed TURNER - did not identify any impairment in visuospatial classification , working memory, or alternative attention capabilities, executive control meeting demands of life, ability to use her working memory, solve problems, control self reasonable well in most situations, WESLEY-2 and self rating scale are congruent ADHD will read self help books and pod cast in ADHD patient took SHERRY and WESLEY-2 test just for self awareness and not for medication for ADD/ADHD 4. Primary insomnia -Trazodone 100 mg bedtime 5. Long-term drug therapy -will monitor UDS r/t Xanax 02/26/2024 MDD (major depressive disorder), recurrent episode, mild (ICD-10 - F33.0) educated on all medications, benefits, side effects and risk, and educated on depression, anxiety, and mood d/o and educated on compliance of medications, appointment's, continue therapy discussion with patient about course of treatment and patient instructions. 3. Attention deficit hyperactivity disorder, combined type - no rx Turner and WESLEY-2 test reviewedMESA - did not identify any impairment in visuospatial classification, working memory, or alternative attention capabilities, executive control meeting demands of life, ability to use her working memory, solve problems, control self reasonable well in most situations, WESLEY-2 and self rating scale are congruent ADHD will read self help books and pod cast in ADHDpatient took SHERRY and WESLEY-2 test just for self awareness and not for medication for ADD/ADHD major depression - Viibryd 40 mg daily eat 350 calories with medication venlafaxine ER 150 MG DAILY IN AM - monitor B/P- on B/P RX seen PCP 12/08- see every 3 months see pain management educated on all medications, benefits, side effects and risk, and educated on depression, anxiety, and mood d/o and educated on compliance of medications, appointment's, continue therapy discussion with patient about course of treatment and patient instructions. obtain labs PCP Seen RN HEDIS 2023 colonoscopy due 2024 2. Generalized anxiety disorder Increase Buspar 15 mg three times a day Xanax 0.5 mg three times a day D/C Visatril 25 mg as needed twice a day for anxiety- Patient reported not helped educated on all rx, benefits, side effects and risk 3. Attention deficit hyperactivity disorder, combined type - no rx Turner and WESLEY-2 test reviewed TURNER - did not identify any impairment in visuospatial classification , working memory, or alternative attention capabilities, executive control meeting demands of life, ability to use her working memory, solve problems, control self reasonable well in most situations, WESLEY-2 and self rating scale are congruent ADHD will read self help books and pod cast in ADHD patient took SHERRY and WESLEY-2 test just for self awareness and not for medication for ADD/ADHD 4. Primary insomnia -Trazodone 100 mg bedtime 5. Long-term drug therapy -will monitor UDS r/t Xanax 05/25/2024 Nicotine use (ICD-10 - Z72.0) major depression - Viibryd 40 mg daily eat 350 calories with medication venlafaxine ER 150 MG DAILY IN AM - monitor B/P- on B/P RX seen PCP 12/08- see every 3 months see pain management educated on all medications, benefits, side effects and risk, and educated on depression, anxiety, and mood d/o and educated on compliance of medications, appointment's, continue therapy discussion with patient about course of treatment and patient instructions. obtain labs PCP Seen RN HEDIS 2023 colonoscopy due 2024 2. Generalized anxiety disorder Increase Buspar 15 mg three times a day Xanax 0.5 mg three times a day D/C Visatril 25 mg as needed twice a day for anxiety- Patient reported not helped educated on all rx, benefits, side effects and risk 3. Attention deficit hyperactivity disorder, combined type - no rx Turner and WESLEY-2 test reviewed TURNER - did not identify any impairment in visuospatial classification , working memory, or alternative attention capabilities, executive control meeting demands of life, ability to use her working memory, solve problems, control self reasonable well in most situations, WESLEY-2 and self rating scale are congruent ADHD will read self help books and pod cast in ADHD patient took SHERRY and WESLEY-2 test just for self awareness and not for medication for ADD/ADHD 4. Primary insomnia -Trazodone 100 mg bedtime 5. Long-term drug therapy -will monitor UDS r/t Xanax 05/25/2024 Encounter for screening for cardiovascular disorders (ICD-10 - Z13.6) major depression - Viibryd 40 mg daily eat 350 calories with medication venlafaxine ER 150 MG DAILY IN AM - monitor B/P- on B/P RX seen PCP 12/08- see every 3 months see pain management educated on all medications, benefits, side effects and risk, and educated on depression, anxiety, and mood d/o and educated on compliance of medications, appointment's, continue therapy discussion with patient about course of treatment and patient instructions. obtain labs PCP Seen RN HEDIS 2023 colonoscopy due 2024 2. Generalized anxiety disorder Increase Buspar 15 mg three times a day Xanax 0.5 mg three times a day D/C Visatril 25 mg as needed twice a day for anxiety- Patient reported not helped educated on all rx, benefits, side effects and risk 3. Attention deficit hyperactivity disorder, combined type - no rx Turner and WESLEY-2 test reviewed [facility] - did not identify any impairment in visuospatial classification , working memory, or alternative attention capabilities, executive control meeting demands of life, ability to use her working memory, solve problems, control self reasonable well in most situations, WESLEY-2 and self rating scale are congruent ADHD will read self help books and pod cast in ADHD patient took SHERRY and WESLEY-2 test just for self awareness and not for medication for ADD/ADHD 4. Primary insomnia -Trazodone 100 mg bedtime 5. Long-term drug therapy -will monitor UDS r/t Xanax 02/26/2024 Primary insomnia (ICD-10 - F51.01) Insomnia: Care Instructions material was published major depression - Viibryd 40 mg daily eat 350 calories with medication venlafaxine ER 150 MG DAILY IN AM - monitor B/P- on B/P RX seen PCP 12/08- see every 3 months see pain management educated on all medications, benefits, side effects and risk, and educated on depression, anxiety, and mood d/o and educated on compliance of medications, appointment's, continue therapy discussion with patient about course of treatment and patient instructions. obtain labs PCP Seen RN HEDIS 2023 colonoscopy due 2024 2. Generalized anxiety disorder Increase Buspar 15 mg three times a day Xanax 0.5 mg three times a day D/C Visatril 25 mg as needed twice a day for anxiety- Patient reported not helped educated on all rx, benefits, side effects and risk 3. Attention deficit hyperactivity disorder, combined type - no rx Turner and WESLEY-2 test reviewed [place] - did not identify any impairment in visuospatial classification , working memory, or alternative attention capabilities, executive control meeting demands of life, ability to use her working memory, solve problems, control self reasonable well in most situations, WESLEY-2 and self rating scale are congruent ADHD will read self help books and pod cast in ADHD patient took SHERRY and WESLEY-2 test just for self awareness and not for medication for ADD/ADHD 4. Primary insomnia -Trazodone 100 mg bedtime 5. Long-term drug therapy -will monitor UDS r/t Xanax 11/27/2023 Generalized anxiety disorder (ICD-10 - F41.1) major depression - Viibryd 40 mg daily eat 350 calories with medication venlafaxine ER 150 MG DAILY IN AM - monitor B/P educated on all medications, benefits, side effects and risk, and educated on depression, anxiety, and mood d/o and educated on compliance of medications, appointment's, continue therapy discussion with patient about course of treatment and patient instructions. obtain labs PCP Seen RN HEDIS 2022 colonoscopy due 2023 2. Generalized anxiety disorder Buspar 10 mg three times a day Xanax 0.5 mg three times a day Add Visatril 25 mg as needed twice a day for anxiety educated on all rx, benefits, side effects and risk 3. Attention deficit hyperactivity disorder, combined type - no rx Turner and WESLEY-2 test reviewed [place] - did not identify any impairment in visuospatial classification , working memory, or alternative attention capabilities, executive control meeting demands of life, ability to use her working memory, solve problems, control self reasonable well in most situations, WESLEY-2 and self rating scale are congruent ADHD will read self help books and pod cast in ADHD patient took SHERRY and WESLEY-2 test just for self awareness and not for medication for ADD/ADHD 4. Primary insomnia -Trazodone 100 mg bedtime 5. Long-term drug therapy -will monitor UDS r/t Xanax 08/26/2023 Primary insomnia (ICD-10 - F51.01) Insomnia: Care Instructions material was published Mild major depression - Viibryd 40 mg daily eat 350 calories with medication venlafaxine ER 150 MG DAILY IN AM - monitor B/P educated on all medications, benefits, side effects and risk, and educated on depression, anxiety, and mood d/o and educated on compliance of medications, appointment's, continue therapy discussion with patient about course of treatment and patient instructions. obtain labs PCPSeen RN HEDIS 2022 colonoscopy due 2023 F32.0: Major depressive disorder, single episode, mild 2. Generalized anxiety disorder F41.1: Generalized anxiety disorder Buspar 10 mg three times a day Xanax 0.5 mg three times a day 3. Attention deficit hyperactivity disorder, combined type - no rx Turner and WESLEY-2 test reviewedMESA - did not identify any impairment in visuospatial classification , working memory, or alternative attention capabilities, executive control meeting demands of life, ability to use her working memory, solve problems, control self reasonable well in most situations, WESLEY-2 and self rating scale are congruent ADHD will read self help books and pod cast in ADHDpatient took SHERRY and WESLEY-2 test just for self awareness and not for medication for ADD/ADHDF90.2: Attention-defi cit hyperactivity disorder, combined type 4. Primary insomnia -Trazodone 100 mg bedtime F51.01: Primary insomnia 5. Long-term drug therapy -will monitor UDS r/t Xanax Z79.899: Other longterm (current) drug therapy , Depression Treatment: Care Instructions material was published 08/26/2023 Attention-defici t hyperactivity disorder, combined type (ICD-10 - F90.2) Mild major depression - Viibryd 40 mg daily eat 350 calories with medication venlafaxine ER 150 MG DAILY IN AM - monitor B/P educated on all medications, benefits, side effects and risk, and educated on depression, anxiety, and mood d/o and educated on compliance of medications, appointment's, continue therapy discussion with patient about course of treatment and patient instructions. obtain labs PCPSeen RN HEDIS 2022 colonoscopy due 2023 F32.0: Major depressive disorder, single episode, mild 2. Generalized anxiety disorder F41.1: Generalized anxiety disorder Buspar 10 mg three times a day Xanax 0.5 mg three times a day 3. Attention deficit hyperactivity disorder, combined type - no rx Turner and WESLEY-2 test reviewedMESA - did not identify any impairment in visuospatial classification , working memory, or alternative attention capabilities, executive control meeting demands of life, ability to use her working memory, solve problems, control self reasonable well in most situations, WESLEY-2 and self rating scale are congruent ADHD will read self help books and pod cast in ADHDpatient took SHERRY and WESLEY-2 test just for self awareness and not for medication for ADD/ADHDF90.2: Attention-defi cit hyperactivity disorder, combined type 4. Primary insomnia -Trazodone 100 mg bedtime F51.01: Primary insomnia 5. Long-term drug therapy -will monitor UDS r/t Xanax Z79.899: Other longterm (current) drug therapy , Depression Treatment: Care Instructions material was published 11/27/2023 Primary insomnia (ICD-10 - F51.01) Insomnia: Care Instructions material was published major depression - Viibryd 40 mg daily eat 350 calories with medication venlafaxine ER 150 MG DAILY IN AM - monitor B/P educated on all medications, benefits, side effects and risk, and educated on depression, anxiety, and mood d/o and educated on compliance of medications, appointment's, continue therapy discussion with patient about course of treatment and patient instructions. obtain labs PCP Seen RN HEDIS 2022 colonoscopy due 2023 2. Generalized anxiety disorder Buspar 10 mg three times a day Xanax 0.5 mg three times a day Add Visatril 25 mg as needed twice a day for anxiety educated on all rx, benefits, side effects and risk 3. Attention deficit hyperactivity disorder, combined type - no rx Turner and WESLEY-2 test reviewed [place] - did not identify any impairment in visuospatial classification , working memory, or alternative attention capabilities, executive control meeting demands of life, ability to use her working memory, solve problems, control self reasonable well in most situations, WSELEY-2 and self rating scale are congruent ADHD will read self help books and pod cast in ADHD patient took SHERRY and WESLEY-2 test just for self awareness and not for medication for ADD/ADHD 4. Primary insomnia -Trazodone 100 mg bedtime 5. Long-term drug therapy -will monitor UDS r/t Xanax 02/26/2024 Attention-defici t hyperactivity disorder, combined type (ICD-10 - F90.2) major depression - Viibryd 40 mg daily eat 350 calories with medication venlafaxine ER 150 MG DAILY IN AM - monitor B/P- on B/P RX seen PCP 12/08- see every 3 months see pain management educated on all medications, benefits, side effects and risk, and educated on depression, anxiety, and mood d/o and educated on compliance of medications, appointment's, continue therapy discussion with patient about course of treatment and patient instructions. obtain labs PCP Seen RN HEDIS 2023 colonoscopy due 2024 2. Generalized anxiety disorder Increase Buspar 15 mg three times a day Xanax 0.5 mg three times a day D/C Visatril 25 mg as needed twice a day for anxiety- Patient reported not helped educated on all rx, benefits, side effects and risk 3. Attention deficit hyperactivity disorder, combined type - no rx Turner and WESLEY-2 test reviewed [place] - did not identify any impairment in visuospatial classification , working memory, or alternative attention capabilities, executive control meeting demands of life, ability to use her working memory, solve problems, control self reasonable well in most situations, WESLEY-2 and self rating scale are congruent ADHD will read self help books and pod cast in ADHD patient took SHERRY and WESLEY-2 test just for self awareness and not for medication for ADD/ADHD 4. Primary insomnia -Trazodone 100 mg bedtime 5. Long-term drug therapy -will monitor UDS r/t Xanax 05/25/2024 MDD (major depressive disorder), recurrent episode, mild (ICD-10 - F33.0) educated on all medications, benefits, side effects and risk, and educated on depression, anxiety, and mood d/o and educated on compliance of medications, appointment's, continue therapy discussion with patient about course of treatment and patient instructions. 3. Attention deficit hyperactivity disorder, combined type - no rx Turner and WESLEY-2 test reviewedMESA - did not identify any impairment in visuospatial classification, working memory, or alternative attention capabilities, executive control meeting demands of life, ability to use her working memory, solve problems, control self reasonable well in most situations, WESLEY-2 and self rating scale are congruent ADHD will read self help books and pod cast in ADHDpatient took SHERRY and WESLEY-2 test just for self awareness and not for medication for ADD/ADHD major depression - Viibryd 40 mg daily eat 350 calories with medication venlafaxine ER 150 MG DAILY IN AM - monitor B/P- on B/P RX seen PCP 12/08- see every 3 months see pain management educated on all medications, benefits, side effects and risk, and educated on depression, anxiety, and mood d/o and educated on compliance of medications, appointment's, continue therapy discussion with patient about course of treatment and patient instructions. obtain labs PCP Seen RN HEDIS 2023 colonoscopy due 2024 2. Generalized anxiety disorder Increase Buspar 15 mg three times a day Xanax 0.5 mg three times a day D/C Visatril 25 mg as needed twice a day for anxiety- Patient reported not helped educated on all rx, benefits, side effects and risk 3. Attention deficit hyperactivity disorder, combined type - no rx Turner and WESLEY-2 test reviewed [place] - did not identify any impairment in visuospatial classification , working memory, or alternative attention capabilities, executive control meeting demands of life, ability to use her working memory, solve problems, control self reasonable well in most situations, WESLEY-2 and self rating scale are congruent ADHD will read self help books and pod cast in ADHD patient took SHERRY and WESLEY-2 test just for self awareness and not for medication for ADD/ADHD 4. Primary insomnia -Trazodone 100 mg bedtime 5. Long-term drug therapy -will monitor UDS r/t Xanax 05/25/2024 Generalized anxiety disorder (ICD-10 - F41.1) major depression - Viibryd 40 mg daily eat 350 calories with medication venlafaxine ER 150 MG DAILY IN AM - monitor B/P- on B/P RX seen PCP 12/08- see every 3 months see pain management educated on all medications, benefits, side effects and risk, and educated on depression, anxiety, and mood d/o and educated on compliance of medications, appointment's, continue therapy discussion with patient about course of treatment and patient instructions. obtain labs PCP Seen RN HEDIS 2023 colonoscopy due 2024 2. Generalized anxiety disorder Increase Buspar 15 mg three times a day Xanax 0.5 mg three times a day D/C Visatril 25 mg as needed twice a day for anxiety- Patient reported not helped educated on all rx, benefits, side effects and risk 3. Attention deficit hyperactivity disorder, combined type - no rx Turner and WESLEY-2 test reviewed [place] - did not identify any impairment in visuospatial classification , working memory, or alternative attention capabilities, executive control meeting demands of life, ability to use her working memory, solve problems, control self reasonable well in most situations, WESLEY-2 and self rating scale are congruent ADHD will read self help books and pod cast in ADHD patient took SHERRY and WESLEY-2 test just for self awareness and not for medication for ADD/ADHD 4. Primary insomnia -Trazodone 100 mg bedtime 5. 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 obtain labs PCP Seen RN HEDIS 2023 colonoscopy due 2024 2. Generalized anxiety disorder Increase Buspar 15 mg three times a day Xanax 0.5 mg three times a day D/C Visatril 25 mg as needed twice a day for anxiety- Patient reported not helped educated on all rx, benefits, side effects and risk 3. Attention deficit hyperactivity disorder, combined type - no rx Turner and WESLEY-2 test reviewed [place] - did not identify any impairment in visuospatial classification , working memory, or alternative attention capabilities, executive control meeting demands of life, ability to use her working memory, solve problems, control self reasonable well in most situations, WESLEY-2 and self rating scale are congruent ADHD will read self help books and pod cast in ADHD patient took SHERRY and WESLEY-2 test just for self awareness and not for medication for ADD/ADHD 4. Primary insomnia -Trazodone 100 mg bedtime 5. Long-term drug therapy -will monitor UDS r/t Xanax 11/27/2023 Attention-defici t hyperactivity disorder, combined type (ICD-10 - F90.2) major depression - Viibryd 40 mg daily eat 350 calories with medication venlafaxine ER 150 MG DAILY IN AM - monitor B/P educated on all medications, benefits, side effects and risk, and educated on depression, anxiety, and mood d/o and educated on compliance of medications, appointment's, continue therapy discussion with patient about course of treatment and patient instructions. obtain labs PCP Seen RN HEDIS 2022 colonoscopy due 2023 2. Generalized anxiety disorder Buspar 10 mg three times a day Xanax 0.5 mg three times a day Add Visatril 25 mg as needed twice a day for anxiety educated on all rx, benefits, side effects and risk 3. Attention deficit hyperactivity disorder, combined type - no rx Turner and WESLEY-2 test reviewed [place] - did not identify any impairment in visuospatial classification , working memory, or alternative attention capabilities, executive control meeting demands of life, ability to use her working memory, solve problems, control self reasonable well in most situations, WESLEY-2 and self rating scale are congruent ADHD will read self help books and pod cast in ADHD patient took SHERRY and WESLEY-2 test just for self awareness and not for medication for ADD/ADHD 4. Primary insomnia -Trazodone 100 mg bedtime 5. Long-term drug therapy -will monitor UDS r/t Xanax 08/26/2023 Other longterm (current) drug therapy (ICD-10 - Z79.899) Medication Refill: Care Instructions material was published Mild major depression - Viibryd 40 mg daily eat 350 calories with medication venlafaxine ER 150 MG DAILY IN AM - monitor B/P educated on all medications, benefits, side effects and risk, and educated on depression, anxiety, and mood d/o and educated on compliance of medications, appointment's, continue therapy discussion with patient about course of treatment and patient instructions. obtain labs PCPSeen RN HEDIS 2022 colonoscopy due 2023 F32.0: Major depressive disorder, single episode, mild 2. Generalized anxiety disorder F41.1: Generalized anxiety disorder Buspar 10 mg three times a day Xanax 0.5 mg three times a day 3. Attention deficit hyperactivity disorder, combined type - no rx Turner and WESLEY-2 test reviewedMESA - did not identify any impairment in visuospatial classification , working memory, or alternative attention capabilities, executive control meeting demands of life, ability to use her working memory, solve problems, control self reasonable well in most situations, WESLEY-2 and self rating scale are congruent ADHD will read self help books and pod cast in ADHDpatient took SHERRY and WESLEY-2 test just for self awareness and not for medication for ADD/ADHDF90.2: Attention-defi cit hyperactivity disorder, combined type 4. Primary insomnia -Trazodone 100 mg bedtime F51.01: Primary insomnia 5. Long-term drug therapy -will monitor UDS r/t Xanax Z79.899: Other longterm (current) drug therapy , Depression Treatment: Care Instructions material was published 11/27/2023 Other longterm (current) drug therapy (ICD-10 - Z79.899) Medication Refill: Care Instructions material was published major depression - Viibryd 40 mg daily eat 350 calories with medication venlafaxine ER 150 MG DAILY IN AM - monitor B/P educated on all medications, benefits, side effects and risk, and educated on depression, anxiety, and mood d/o and educated on compliance of medications, appointment's, continue therapy discussion with patient about course of treatment and patient instructions. obtain labs PCP Seen RN HEDIS 2022 colonoscopy due 2023 2. Generalized anxiety disorder Buspar 10 mg three times a day Xanax 0.5 mg three times a day Add Visatril 25 mg as needed twice a day for anxiety educated on all rx, benefits, side effects and risk 3. Attention deficit hyperactivity disorder, combined type - no rx Turner and WESLEY-2 test reviewed [place] - did not identify any impairment in visuospatial classification , working memory, or alternative attention capabilities, executive control meeting demands of life, ability to use her working memory, solve problems, control self reasonable well in most situations, WESLEY-2 and self rating scale are congruent ADHD will read self help books and pod cast in ADHD patient took SHERRY and WESLEY-2 test just for self awareness and not for medication for ADD/ADHD 4. Primary insomnia -Trazodone 100 mg bedtime 5. Long-term drug therapy -will monitor UDS r/t Xanax 05/25/2024 Primary insomnia (ICD-10 - F51.01) Insomnia: Care Instructions material was published major depression - Viibryd 40 mg daily eat 350 calories with medication venlafaxine ER 150 MG DAILY IN AM - monitor B/P- on B/P RX seen PCP 12/08- see every 3 months see pain management educated on all medications, benefits, side effects and risk, and educated on depression, anxiety, and mood d/o and educated on compliance of medications, appointment's, continue therapy discussion with patient about course of treatment and patient instructions. obtain labs PCP Seen RN HEDIS 2023 colonoscopy due 2024 2. Generalized anxiety disorder Increase Buspar 15 mg three times a day Xanax 0.5 mg three times a day D/C Visatril 25 mg as needed twice a day for anxiety- Patient reported not helped educated on all rx, benefits, side effects and risk 3. Attention deficit hyperactivity disorder, combined type - no rx Turner and WESLEY-2 test reviewed [place] - did not identify any impairment in visuospatial classification , working memory, or alternative attention capabilities, executive control meeting demands of life, ability to use her working memory, solve problems, control self reasonable well in most situations, WESLEY-2 and self rating scale are congruent ADHD will read self help books and pod cast in ADHD patient took SHERRY and WESLEY-2 test just for self awareness and not for medication for ADD/ADHD 4. Primary insomnia -Trazodone 100 mg bedtime 5. Long-term drug therapy -will monitor UDS r/t Xanax 02/26/2024 Essential hypertension (ICD-10 - I10) major depression - Viibryd 40 mg daily eat 350 calories with medication venlafaxine ER 150 MG DAILY IN AM - monitor B/P- on B/P RX seen PCP 12/08- see every 3 months see pain management educated on all medications, benefits, side effects and risk, and educated on depression, anxiety, and mood d/o and educated on compliance of medications, appointment's, continue therapy discussion with patient about course of treatment and patient instructions. obtain labs PCP Seen RN HEDIS 2023 colonoscopy due 2024 2. Generalized anxiety disorder Increase Buspar 15 mg three times a day Xanax 0.5 mg three times a day D/C Visatril 25 mg as needed twice a day for anxiety- Patient reported not helped educated on all rx, benefits, side effects and risk 3. Attention deficit hyperactivity disorder, combined type - no rx Turner and WESLEY-2 test reviewed [place] - did not identify any impairment in visuospatial classification , working memory, or alternative attention capabilities, executive control meeting demands of life, ability to use her working memory, solve problems, control self reasonable well in most situations, WESLEY-2 and self rating scale are congruent ADHD will read self help books and pod cast in ADHD patient took SHERRY and WESLEY-2 test just for self awareness and not for medication for ADD/ADHD 4. Primary insomnia -Trazodone 100 mg bedtime 5. Long-term drug therapy -will monitor UDS r/t Xanax 05/25/2024 Attention-defici t hyperactivity disorder, combined type (ICD-10 - F90.2) major depression - Viibryd 40 mg daily eat 350 calories with medication venlafaxine ER 150 MG DAILY IN AM - monitor B/P- on B/P RX seen PCP 12/08- see every 3 months see pain management educated on all medications, benefits, side effects and risk, and educated on depression, anxiety, and mood d/o and educated on compliance of medications, appointment's, continue therapy discussion with patient about course of treatment and patient instructions. obtain labs PCP Seen RN HEDIS 2023 colonoscopy due 2024 2. Generalized anxiety disorder Increase Buspar 15 mg three times a day Xanax 0.5 mg three times a day D/C Visatril 25 mg as needed twice a day for anxiety- Patient reported not helped educated on all rx, benefits, side effects and risk 3. Attention deficit hyperactivity disorder, combined type - no rx Turner and WESLEY-2 test reviewed [place] - did not identify any impairment in visuospatial classification , working memory, or alternative attention capabilities, executive control meeting demands of life, ability to use her working memory, solve problems, control self reasonable well in most situations, WESLEY-2 and self rating scale are congruent ADHD will read self help books and pod cast in ADHD patient took SHERRY and WESLEY-2 test just for self awareness and not for medication for ADD/ADHD 4. Primary insomnia -Trazodone 100 mg bedtime 5. Long-term drug therapy -will monitor UDS r/t Xanax 05/25/2024 Other longterm (current) drug therapy (ICD-10 - Z79.899) Medication Refill: Care Instructions material was published major depression - Viibryd 40 mg daily eat 350 calories with medication venlafaxine ER 150 MG DAILY IN AM - monitor B/P- on B/P RX seen PCP 12/08- see every 3 months see pain management educated on all medications, benefits, side effects and risk, and educated on depression, anxiety, and mood d/o and educated on compliance of medications, appointment's, continue therapy discussion with patient about course of treatment and patient instructions. obtain labs PCP Seen RN HEDIS 2023 colonoscopy due 2024 2. Generalized anxiety disorder Increase Buspar 15 mg three times a day Xanax 0.5 mg three times a day D/C Visatril 25 mg as needed twice a day for anxiety- Patient reported not helped educated on all rx, benefits, side effects and risk 3. Attention deficit hyperactivity disorder, combined type - no rx Turner and WESLEY-2 test reviewed TURNER - did not identify any impairment in visuospatial classification , working memory, or alternative attention capabilities, executive control meeting demands of life, ability to use her working memory, solve problems, control self reasonable well in most situations, WESLEY-2 and self rating scale are congruent ADHD will read self help books and pod cast in ADHD patient took SHERRY and WESLEY-2 test just for self awareness and not for medication for ADD/ADHD 4. Primary insomnia -Trazodone 100 mg bedtime 5. Long-term drug therapy -will monitor UDS r/t Xanax 05/25/2024 Essential hypertension (ICD-10 - I10) major depression - Viibryd 40 mg daily eat 350 calories with medication venlafaxine ER 150 MG DAILY IN AM - monitor B/P- on B/P RX seen PCP 12/08- see every 3 months see pain management educated on all medications, benefits, side effects and risk, and educated on depression, anxiety, and mood d/o and educated on compliance of medications, appointment's, continue therapy discussion with patient about course of treatment and patient instructions. obtain labs PCP Seen RN HEDIS 2023 colonoscopy due 2024 2. Generalized anxiety disorder Increase Buspar 15 mg three times a day Xanax 0.5 mg three times a day D/C Visatril 25 mg as needed twice a day for anxiety- Patient reported not helped educated on all rx, benefits, side effects and risk 3. Attention deficit hyperactivity disorder, combined type - no rx Turner and WESLEY-2 test reviewed TURNER - did not identify any impairment in visuospatial classification , working memory, or alternative attention capabilities, executive control meeting demands of life, ability to use her working memory, solve problems, control self reasonable well in most situations, WESLEY-2 and self rating scale are congruent ADHD will read self help books and pod cast in ADHD patient took SHERRY and WESLEY-2 test just for self awareness and not for medication for ADD/ADHD 4. Primary insomnia -Trazodone 100 mg bedtime 5. Long-term drug therapy -will monitor UDS r/t Xanax 08/26/2023 Other Vilazodone Oral Tablet (VILAZODONE - ORAL) material was published, Venlafaxine Extended Release Oral Capsule (VENLAFAXINE SUSTAINED-RELEASE - ORAL) material was published, Buspirone Oral Tablet (BUSPIRONE - ORAL) material was published, Alprazolam Oral Tablet (ALPRAZOLAM - ORAL) material was published, Trazodone Oral Tablet (TRAZODONE - ORAL) material was published Mild major depression - Viibryd 40 mg daily eat 350 calories with medication venlafaxine ER 150 MG DAILY IN AM - monitor B/P educated on all medications, benefits, side effects and risk, and educated on depression, anxiety, and mood d/o and educated on compliance of medications, appointment's, continue therapy discussion with patient about course of treatment and patient instructions. obtain labs PCPSeen RN HEDIS 2022 colonoscopy due 2023 F32.0: Major depressive disorder, single episode, mild 2. Generalized anxiety disorder F41.1: Generalized anxiety disorder Buspar 10 mg three times a day Xanax 0.5 mg three times a day 3. Attention deficit hyperactivity disorder, combined type - no rx Turner and WESLEY-2 test reviewedMESA - did not identify any impairment in visuospatial classification , working memory, or alternative attention capabilities, executive control meeting demands of life, ability to use her working memory, solve problems, control self reasonable well in most situations, WESLEY-2 and self rating scale are congruent ADHD will read self help books and pod cast in ADHDpatient took SHERRY and WESLEY-2 test just for self awareness and not for medication for ADD/ADHDF90.2: Attention-defi cit hyperactivity disorder, combined type 4. Primary insomnia -Trazodone 100 mg bedtime F51.01: Primary insomnia 5. 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 , Depression Treatment: Care Instructions material was published Plan Of Treatment Next Appt Details Provider Name:Jessica Holder , 08/24/2024 09:45:00 AM, [address], [address], [place], [address], Insurance Providers Payer Name Payer Address Payer Phone Subscriber Number Group Number Insured Name Patient Relationship to Insured Coverage Start Date Coverage End Date [facility] [address] [place] [phone] [id number] COLLEEN ALLEN Self - patient is the insured Medical (General) History Medical History History ICD Code Problems: Anxiety disorder Attention deficit hyperactivity disorder , combined type Generalized anxiety disorder Long-term drug therapy Mild major depression Primary insomnia Tobacco user Unable to concentrate , Surgical History Surgery Date(Month/Year) Removal of gallbladder (26415) Hysterectomy (51012) Other
[2024-07-21 06:26] VITALS: BP 101/66; PULSE 84; RESP 16; TEMP 36.4; O2SAT 97; BMI 26.4
[2024-07-21] MEDS: LACTATED RINGERS 1,000 ML 150 ML IV CONT (06:41)
--- NOTE | 2024-07-21 07:23 | WPDANESEPPF ---
Anes - Initial Pre Proc Eval Procedure: Operation Date: 07/21/24 07:30 Proposed Procedures p Screening Colonoscopy - Papo Bernard MD Date/Time: 07/21/24 07:23 Surgeon: Papo Bernard MD Pre Op Diagnosis: malignant neoplasm of colon Patient Data Age: 63 Gender: F Height: 1.7 m Weight: 76.6 kg Last Vital Signs Temp 97.5 F L 07/21/24 06:26 Pulse 84 07/21/24 06:26 Resp 16 07/21/24 06:26 BP 101/66 07/21/24 06:26 Pulse Ox 97 07/21/24 06:26 O2 Del Method Room Air 07/21/24 06:26 Allergies Allergy/AdvReac Type Severity Reaction Status Date / Time No Known Allergies Allergy Verified 07/21/24 06:23 Home Medications ?Medication ?Instructions ?Recorded ?Confirmed ?Type buspirone 10 mg tablet 10 mg PO TID 04/30/22 07/21/24 History alendronate 70 mg tablet (Fosamax) 70 mg PO WEEKLY #14 tabs 12/01/23 07/09/24 Rx gabapentin 600 mg tablet 1,200 mg PO TID 01/06/24 07/21/24 History methocarbamol 750 mg tablet 750 mg PO TID 01/06/24 07/21/24 History trazodone 100 mg tablet 100 mg PO HS 01/06/24 07/21/24 History venlafaxine 150 mg 150 mg PO DAILY 01/06/24 07/21/24 History capsule,extended release 24 hr vilazodone 40 mg tablet 40 mg PO DAILY 01/06/24 07/21/24 History cholecalciferol (vitamin D3) 1,250 See Rx Instructions .Route 03/15/24 07/21/24 Rx mcg (50,000 unit) capsule .COMPLEX #12 caps omeprazole 40 mg capsule,delayed See Rx Instructions .Route 03/22/24 07/21/24 Rx release .COMPLEX #90 caps losartan 100 mg tablet See Rx Instructions .Route 04/19/24 07/21/24 Rx .COMPLEX #90 tabs propranolol 80 mg capsule,24 See Rx Instructions .Route 04/19/24 07/21/24 Rx hr,extended release .COMPLEX #90 caps hydrochlorothiazide 25 mg tablet See Rx Instructions .Route 05/07/24 07/21/24 Rx .COMPLEX #90 tabs diazepam 5 mg tablet See Rx Instructions PO DAILY PRN 05/11/24 07/09/24 Rx flying #10 tabs tirzepatide (weight loss) 7.5 7.5 mg (0.5 mL) subcut WEEKLY #2 mL 06/21/24 07/09/24 Rx mg/0.5 mL subcutaneous pen injector (Zepbound) atorvastatin 20 mg tablet See Rx Instructions .Route 07/07/24 07/21/24 Rx .COMPLEX #90 tabs pramipexole 0.5 mg tablet See Rx Instructions .Route 07/07/24 07/21/24 Rx .COMPLEX #90 tabs alprazolam 0.5 mg tablet 0.5 mg PO TID 07/09/24 07/21/24 History tirzepatide 10 mg/0.5 mL 10 mg (0.5 mL) subcut WEEKLY #2 mL 07/20/24 07/21/24 Rx subcutaneous pen injector (Mounjaro) Patient hx anesthesia problems: none Family hx anesthesia problems: none Results Review: All pre-operative results and documents have been reviewed as part of the pre-operative evaluation. [facility] Past Medical History Medical History Screening mammogram, encounter for Encounter for postoperative care GERD (gastroesophageal reflux disease) Hypertension Left carpal tunnel syndrome Cubital tunnel syndrome on left Hallux valgus of right foot Hallux rigidus of left foot Tendinitis of right peroneus brevis tendon Insomnia Depression Anxiety Surgical History Surgical History S/P cubital tunnel release 2009, 2017 Hx of breast reduction, elective (~1994) History of hysterectomy (~2013) History of bunionectomy (~2012) History of carpal tunnel release 1999, 2014 History of cholecystectomy (~1999) Family History Family History Father , 11/2023 Depression Heart disease Mother Depression Hypertension Grandparent Diabetes mellitus Other Family history of arthritis Family history of heart disease in male family member before age 55 Social History Social History (Updated 06/24/24 @ 13:52 by Everardo Luz) Social History: 06/18/24 very confident with medical forms Smoking packs per day: 0.5 Smoking cigarettes per day: 10.0 Years smoked: 40 Smoking pack-years: 20.00 Smoking status: Current every day smoker Tobacco type: cigarettes Second hand tobacco smoke exposure: Yes Additional smoking assessment comments: Currently quitting smoking Alcohol intake: never Alcohol use details: rum; maybe 2 per month Substance use: never Substance use type: does not use Do You Feel Safe in your Home?: Yes Lack of Transportation: No Lack of Food: Never True Current Housing: I Have Housing Concerned About Future Housing: No Difficulty Paying Gas/Electric Bills: No Difficulty Paying for Meds: No Currently Unemployed: No Education: Bachelor's Degree Difficulty w/ Childcare or Family Care: No Living arrangements: with family Additional living arrangements comments: Occupation/Education: 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 Gender identity (if verbalized by the patient): Female Sexual Orientation (if Verbalized by the Patient): Straight or Heterosexual Spiritual care concerns: No Agree to blood products: Yes Anes - Eval Final PreProcedure Day of Procedure 07/21/24 07:23 Patient weight: normal Heart: regular rate and rhythm Lungs: clear to auscultation Airway: Mallampati scale class II Neurological: alert and oriented Last oral intake: >/= 8 hours ASA classification: III Emergent: no Anesthetic plan: proceed Anesthesia type and monitoring: general GIVS and standard monitoring Results Review: All pre-operative results and documents have been reviewed as part of the pre-operative evaluation. Informed Consent: The patient's anesthetic plan and its attendant risks and benefits were discussed with the patient/family/POA. Questions were solicited and answers provided to the satisfaction of the patient/family/POA.
--- NOTE | 2024-07-21 07:28 | PM.HPGS ---
History of Present Illness History of Present Illness Consent: Risks, benefits, and alternatives have been discussed and questions answered. Patient agrees to proceed with procedure. Chief complaint: malignant neoplasm of colon Narrative: Sloane Adamson is a 63 year old female with colon polyp in 2021 Review of Systems Review of Systems: All systems reviewed & are unremarkable except as noted in HPI and below PMFSH Past Medical History Medical History (Updated 07/21/24 @ 07:29 by Papo Bernard MD) Colon polyp Screening mammogram, encounter for Encounter for postoperative care GERD (gastroesophageal reflux disease) Hypertension Left carpal tunnel syndrome Cubital tunnel syndrome on left Hallux valgus of right foot Hallux rigidus of left foot Tendinitis of right peroneus brevis tendon Insomnia Depression Anxiety Surgical History Surgical History S/P cubital tunnel release 2009, 2017 Hx of breast reduction, elective (~1994) History of hysterectomy (~2013) History of bunionectomy (~2012) History of carpal tunnel release 1999, 2014 History of cholecystectomy (~1999) Family History Family History Father , 11/2023 Depression Heart disease Mother Depression Hypertension Grandparent Diabetes mellitus Other Family history of arthritis Family history of heart disease in male family member before age 55 Social History Social History (Updated 06/24/24 @ 13:52 by Eevrardo Luz) Social History: 06/18/24 very confident with medical forms Smoking packs per day: 0.5 Smoking cigarettes per day: 10.0 Years smoked: 40 Smoking pack-years: 20.00 Smoking status: Current every day smoker Tobacco type: cigarettes Second hand tobacco smoke exposure: Yes Additional smoking assessment comments: Currently quitting smoking Alcohol intake: never Alcohol use details: rum; maybe 2 per month Substance use: never Substance use type: does not use Do You Feel Safe in your Home?: Yes Lack of Transportation: No Lack of Food: Never True Current Housing: I Have Housing Concerned About Future Housing: No Difficulty Paying Gas/Electric Bills: No Difficulty Paying for Meds: No Currently Unemployed: No Education: Bachelor's Degree Difficulty w/ Childcare or Family Care: No Living arrangements: with family Additional living arrangements comments: Occupation/Education: retired 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 Gender identity (if verbalized by the patient): Female Sexual Orientation (if Verbalized by the Patient): Straight or Heterosexual Spiritual care concerns: No Agree to blood products: Yes Meds Home Medications and Allergies Home Medications ?Medication ?Instructions ?Recorded ?Confirmed ?Type buspirone 10 mg tablet 10 mg PO TID 04/30/22 07/21/24 History alendronate 70 mg tablet (Fosamax) 70 mg PO WEEKLY #14 tabs 12/01/23 07/09/24 Rx gabapentin 600 mg tablet 1,200 mg PO TID 01/06/24 07/21/24 History methocarbamol 750 mg tablet 750 mg PO TID 01/06/24 07/21/24 History trazodone 100 mg tablet 100 mg PO HS 01/06/24 07/21/24 History venlafaxine 150 mg 150 mg PO DAILY 01/06/24 07/21/24 History capsule,extended release 24 hr vilazodone 40 mg tablet 40 mg PO DAILY 01/06/24 07/21/24 History cholecalciferol (vitamin D3) 1,250 See Rx Instructions .Route 03/15/24 07/21/24 Rx mcg (50,000 unit) capsule .COMPLEX #12 caps omeprazole 40 mg capsule,delayed See Rx Instructions .Route 03/22/24 07/21/24 Rx release .COMPLEX #90 caps losartan 100 mg tablet See Rx Instructions .Route 04/19/24 07/21/24 Rx .COMPLEX #90 tabs propranolol 80 mg capsule,24 See Rx Instructions .Route 04/19/24 07/21/24 Rx hr,extended release .COMPLEX #90 caps hydrochlorothiazide 25 mg tablet See Rx Instructions .Route 05/07/24 07/21/24 Rx .COMPLEX #90 tabs diazepam 5 mg tablet See Rx Instructions PO DAILY PRN 05/11/24 07/09/24 Rx flying #10 tabs tirzepatide (weight loss) 7.5 7.5 mg (0.5 mL) subcut WEEKLY #2 mL 06/21/24 07/09/24 Rx mg/0.5 mL subcutaneous pen injector (Zepbound) atorvastatin 20 mg tablet See Rx Instructions .Route 07/07/24 07/21/24 Rx .COMPLEX #90 tabs pramipexole 0.5 mg tablet See Rx Instructions .Route 07/07/24 07/21/24 Rx .COMPLEX #90 tabs alprazolam 0.5 mg tablet 0.5 mg PO TID 07/09/24 07/21/24 History tirzepatide 10 mg/0.5 mL 10 mg (0.5 mL) subcut WEEKLY #2 mL 07/20/24 07/21/24 Rx subcutaneous pen injector (Geovanni) Allergies Allergy/AdvReac Type Severity Reaction Status Date / Time No Known Allergies Allergy Verified 07/21/24 06:23 Vital Signs Vital Signs - 24 hr 07/21/24 06:26 Temperature 97.5 F L Pulse Rate 84 Respiratory Rate 16 Blood Pressure 101/66 Pulse Oximetry 97 Oxygen Delivery Room Air Exam Const: General: comfortable and no acute distress HENMT: Face/Nose/Sinus: Normal nares present Eyes: General: appearance normal, both eyes and all related structures Neck: Neck: no JVD Resp: Auscultation: clear to auscultation bilaterally Cardio: Rate: regular rate Rhythm: regular rhythm GI: Inspection: non-distended GI Palp: Yes Soft to palpation Skin: General skin exam: normal color Neuro: General: gait normal Speech: normal speech Extrem: General: normal to inspection Psych: Mental Status: mental status grossly normal Assessment and Plan Assessment and plan (1) Colon polyp: Code(s): K63.5 - Polyp of colon Status: Acute Assessment and Plan: colonoscopy
[2024-07-21 07:47] VITALS: BP 116/56; PULSE 71; RESP 17; O2SAT 97
[2024-07-21 07:57] VITALS: BP 90/55; PULSE 73; RESP 21; O2SAT 96
[2024-07-21 08:07] VITALS: BP 104/57; PULSE 72; RESP 18; O2SAT 97
== END 2024-07-21 08:25 | disposition home or self-care (01) ==
PROVIDERS: PCP Nurse Practitioner Family; Referring Provider Internal Medicine Gastroenterology; Visit Provider Internal Medicine Gastroenterology
PROC: 0DJD8ZZ Inspection of Lower Intestinal Tract, Via Natural or Artificial Opening Endoscopic (ICD-10-PCS; CPT 45378; principal; 2024-07-21 07:30)
DX: Z12.11 Encounter for screening for malignant neoplasm of colon (principal); D12.4 Benign neoplasm of descending colon; D12.5 Benign neoplasm of sigmoid colon; K62.1 Rectal polyp; K64.8 Other hemorrhoids; K57.30 Diverticulosis of large intestine without perforation or abscess without bleeding; I10 Essential (primary) hypertension; K21.9 Gastro-esophageal reflux disease without esophagitis; F32.A Depression, unspecified; F41.9 Anxiety disorder, unspecified; G47.00 Insomnia, unspecified; G56.02 Carpal tunnel syndrome, left upper limb; M20.11 Hallux valgus (acquired), right foot; M20.22 Hallux rigidus, left foot; F17.210 Nicotine dependence, cigarettes, uncomplicated; Z79.83 Long term (current) use of bisphosphonates; Z79.85 Long-term (current) use of injectable non-insulin antidiabetic drugs; Z98.890 Other specified postprocedural states; Z90.49 Acquired absence of other specified parts of digestive tract; Z85.038 Personal history of other malignant neoplasm of large intestine; Z82.49 Family history of ischemic heart disease and other diseases of the circulatory system
CPT/HCPCS: 45380; 45385; 88305; J2003; J2704; J7120

== ENCOUNTER 2024-12-22 06:58 | Outpatient (CLI) | payer OTHER, SELFPAY ==
--- NOTE | ~2024-12-22 | MR_ITS ---
EXAMINATION: MR knee LT wo con DATE: 12/22/2024 07:32 INDICATION: Left knee pain. TECHNIQUE: Magnetic resonance imaging (MRI) of the left knee was performed without intravenous contrast. Sequences included axial PD-weighted FS FSE, coronal PD-weighted FSE and PD-weighted FS FSE, sagittal PD-weighted FSE, and sagittal T2-weighted FS FSE. COMPARISON: None. FINDINGS: Medial compartment: Medial meniscus is normal. There is cartilage surface irregularity of tibial condyle. Femoral cartilage is normal. Lateral compartment: The lateral meniscus is normal. There is cartilage surface irregularity of tibial condyle and femoral condyle. Patellofemoral compartment: There is shallow partial-thickness cartilage loss of patellar medial and lateral facets. There is cartilage surface irregularity of trochlea. Osteophytes are noted. Ligaments and tendons: The anterior and posterior cruciate ligaments are normal. There are changes of prior sprains of medial collateral ligament and lateral collateral ligament characterized by thickening and increased signal intensity proximally. There is mild patellar tendinopathy. Fluid: There is a small knee joint effusion. There is mild prepatellar and superficial infrapatellar bursitis. IMPRESSION: 1. Mild tricompartmental chondrosis. 2. Small knee joint effusion. Reviewed, dictated and finalized at location E.
== END 2024-12-22 06:59 | disposition home or self-care (01) ==
LOC: MICIMG 06:59
PROVIDERS: PCP Nurse Practitioner Family; Visit Provider Nurse Practitioner Family
DX: M94.262 Chondromalacia, left knee (principal); M25.462 Effusion, left knee
CPT/HCPCS: 73721